=== PATIENT | female | born 1950 | race Caucasian/White ===

== ENCOUNTER 2016-11-25 16:06 | Emergency (ER) | payer MEDICAID ==
[~2016-11-25] VITALS: Ht 157.5 cm; Wt 80.7 kg
[~2016-11-25 16:06] MED LIST: ACID REDUCER150 MG ORAL; ALBUTEROL SULF8.5 GM INH; AMITRIPTYLINE100 MG ORAL; AMOXICILLIN500 MG ORAL; AZITHROMYCIN250 MG ORAL; BENTYL10 MG ORAL; CARBAMAZEPINE200 MG ORAL; CHLORTHALIDONE25 MG ORAL; DICYCLOMINE HCL10 MG PO; FLOVENT2 PUFF1 INH; GABAPENTIN400 MG ORAL; GUAIFENESIN-CO118 M1 ORAL; LORATADINE10 M1 PO; NORCO 5-325 TA1 EAC1 ORAL; NORCO 5-325 TA1 EACH ORAL; NORVASC5 MG ORAL; OXYCODONE-ACET1 EAC3 ORAL; PRILOSEC10 MG ORAL; PROTONIX40 MG ORAL; PSEUDOEPHEDRINE60 MG PO; XANAX0.25 MG ORAL; ZOFRAN ODT4 MG ORAL; ZOLOFT25 MG ORAL
--- NOTE | 2016-11-25 16:16 | Emergency Room Report ---
History of Present Illness General Chief Complaint: To Be Triaged Source: Patient, Medical Record Present Illness HPI 66YOF walk-in with progressive right lower back pain/buttock radiating to right knee. Chronic but worsening however unable to qualify how it is worse. Denies lower extremity weakness, urinary incontinence, fever/chills, dysuria. States known neuropathy, trigeminal neuropathy. Not diabetic. hasnt seen PMD in a year. Takes percocet PRN pain. Patient has been here before for similar complaints. Per EMR, a h/o nervousness , hyponatremia, and hypomagnesia, , generally weak with confusion, swollen face , dizziness without TURCIOS or loc, blurry vision and change in her speech. Has had labworkup that was negative in the past as well, no electrolyte abnormalities Allergies: Coded Allergies: SULFA (SULFONAMIDE ANTIBIOTICS) (Verified Allergy, Intermediate, Rash, 10/21) abdominal pain DIVALPROEX SODIUM (Verified Allergy, Mild, 10/21/13) UNKNOWN GABAPENTIN (Verified Allergy, Unknown, 11/25/16) CARBAMAZEPINE (Verified Adverse Reaction, Severe, Shortness of Breath, 10/21) swollen lips,dizziness,skin itching. Patient History Past Medical History: other - see hpi Past Surgical History: none Pertinent Family History: none Social History: Denies: smoking, alcohol use, drug use Now: No Immunizations: UTD Reviewed Nursing Documentation: PMH: Agreed, PSxH: Agreed Nursing Documentation-PMH Hx Cardiac Problems: Yes - edema Hx Hypertension: Yes Hx Cancer: Yes - LEFT BREAST Hx Gastrointestinal Problems: Yes - acid reflux Hx Neurological Problems: Yes - trigeminal neuralgia Hx Weakness: Yes Hx Fatigue: Yes Review of Systems All Other Systems: negative except mentioned in HPI Physical Exam Sp02 EP Interpretation: reviewed, normal General Appearance: normal inspection, well appearing, no apparent distress, alert, GCS 15, non-toxic, other - Well appearing, smiling, interactive. Ambulated in ED without weakness Head: normocephalic, atraumatic Eyes: bilateral eye PERRL, bilateral eye EOMI ENT: normal ENT inspection, hearing grossly normal, normal voice Neck: normal inspection, full range of motion, supple, no bony tend Respiratory: normal inspection, lungs clear, normal breath sounds, no respiratory distress, no retraction, no wheezing Cardiovascular #1: regular rate, rhythm, no edema Gastrointestinal: normal inspection, normal bowel sounds, non tender, soft, no guarding, no hernia Genitourinary: no CVA tenderness Musculoskeletal: normal inspection, back normal, normal range of motion, Price' s Sign negative Neurologic: normal inspection, alert, oriented x3, responsive, iron setter III-XII nml as tested, motor strength/tone normal, speech normal, other - 5/5 bilateral lower extremity weakness. SL raise test on right causes radiating pain only to right knee Psychiatric: normal inspection, judgement/insight normal, mood/affect normal Skin: normal inspection, normal color, no rash Medical Decision Making Diagnostic Impression: Primary Impression: Peripheral neuropathy Qualified Codes: G62.89 - Other specified polyneuropathies Additional Impression: Sciatica of right side ER Course Sciatica of right side Chronic No acute focal neuro deficit, low suspicion for cord compression. Low suspicion for pyelo/UTI given afebrile, no urinary complaints. +straight leg raise test on right Has had Rx for Gabapentin from here previously, now stating she is allergic to that as well Will try trial of lidoderm patch, robaxin PMD followup DC home Status: improved Disposition: HOME, SELF-CARE Scripts Lidocaine (Lidoderm) 1 Each Adh..patch 1 PATCH TOPIC DAILY for back pain, sciatica for 14 Days, #14 PATCH 0 Refills Patch(es) may remain in place for up to 12 hours in any 24-hour period. Prov: REBECA MOREL M.D. 11/25/16 Methocarbamol* (ROBAXIN-750*) 750 Mg Tablet 750 MG PO TID for 7 Days, #30 TAB 0 Refills Prov: REBECA MOREL M.D. 11/25/16 REBECA MOREL M.D. Nov 25, 2016 16:16
[2016-11-25] MEDS ORDERED: Methocarbamol 750mg tab ORAL ONE (16:30)
[2016-11-25] MEDS ORDERED: LIDODERM700 M1 TOPIC (16:31)
[2016-11-25] MEDS ORDERED: ROBAXIN-750750 MG PO (16:31)
[2016-11-25] MEDS ORDERED: GABAPENTIN800 MG ORAL (16:31)
[2016-11-25 16:33] VITALS: BP 169/84
[2016-11-25 16:54] VITALS: BP 169/86
== END 2016-11-25 16:56 | disposition home or self-care (01) ==
LOC: EMR 16:35
DX: G62.89 Other specified polyneuropathies (principal); M54.31 Sciatica, right side; I10 Essential (primary) hypertension; K21.9 Gastro-esophageal reflux disease without esophagitis; Z85.3 Personal history of malignant neoplasm of breast; Z88.2 Allergy status to sulfonamides; Z88.8 Allergy status to other drugs, medicaments and biological substances
CPT/HCPCS: 99284

== ENCOUNTER 2017-08-17 22:57 | Emergency (ER) | payer MEDICAID ==
[~2017-08-17] VITALS: Ht 157.5 cm; Wt 79.8 kg
[~2017-08-17 22:57] MED LIST changes: +GABAPENTIN800 MG ORAL; +LIDODERM700 M1 TOPIC; +ROBAXIN-750750 MG PO
[2017-08-17 23:23] VITALS: BP 139/75
[2017-08-17] MEDS ORDERED: Albuterol ud Inhalation HHN ONE (23:45)
[2017-08-18] MEDS ORDERED: ALBUTEROL SULF8.5 GM INH
[2017-08-18] MEDS ORDERED: PREDNISONE20 MG ORAL
--- NOTE | 2017-08-18 00:01 | Emergency Room Report ---
History of Present Illness General Chief Complaint: Chest Pain Source: Patient, Medical Record Present Illness HPI This a 67-year-old female with history of previous bronchitis and also high blood pressure. She presents with chief complaint of chest pressure and shortness of breath is been ongoing for about a week. She's been coughing but nonproductive in nature. Seems getting worse. No fever chills. No chest pain. No nausea no vomiting. Coughing is occasionally with sputum but mostly nonproductive. worse With exertion. Better with rest. Worse with lying flat. Allergies: Coded Allergies: SULFA (SULFONAMIDE ANTIBIOTICS) (Verified Allergy, Intermediate, Rash, 10/21) abdominal pain DIVALPROEX SODIUM (Verified Allergy, Mild, 10/21/13) UNKNOWN GABAPENTIN (Verified Allergy, Unknown, 11/25/16) CARBAMAZEPINE (Verified Adverse Reaction, Severe, Shortness of Breath, 10/21) swollen lips,dizziness,skin itching. Patient History Past Medical History: see triage record, old chart reviewed, HTN Past Surgical History: other Pertinent Family History: none Social History: Denies: smoking Now: No Immunizations: UTD Reviewed Nursing Documentation: PMH: Agreed; PSxH: Agreed Nursing Documentation-PMH Past Medical History: No History, Except For Hx Cardiac Problems: Yes - Hyponatremia Hx Hypertension: Yes Hx Cancer: Yes - Left Breat Hx Gastrointestinal Problems: Yes - GERD, Gastric Ulcer Hx Neurological Problems: Yes - Trigeminal Neuralgia, Peripheral Neuropathy Hx Weakness: Yes Hx Fatigue: Yes Review of Systems Eye: Denies: eye pain, blurred vision ENT: Denies: ear pain, nose congestion, throat swelling Respiratory: Reports: cough, shortness of breath Cardiovascular: Reports: chest pain; Denies: palpitations Gastrointestinal: Denies: abdominal pain, diarrhea, nausea, vomiting Musculoskeletal: Denies: back pain, joint pain Skin: Denies: rash Neurological: Denies: headache, numbness Endocrine: Denies: increased thirst, increased urine Hematologic/Lymphatic: Denies: easy bruising All Other Systems: negative except mentioned in HPI Physical Exam Vital Signs Date Time Temp Pulse Resp B/P (MAP) Pulse Ox O2 Delivery O2 Flow Rate FiO2 08/17/17 23:13 98.9 98 17 139/75 98 Room Air 99.0 08/17/17 23:51 21 vitals normal Sp02 EP Interpretation: reviewed, normal General Appearance: well appearing, no apparent distress, alert Head: normocephalic, atraumatic Eyes: bilateral eye PERRL, bilateral eye EOMI ENT: hearing grossly normal, normal pharynx Neck: full range of motion, supple, no meningismus Respiratory: chest non-tender, lungs clear, normal breath sounds Cardiovascular #1: regular rate, rhythm, no murmur Gastrointestinal: normal bowel sounds, non tender, no mass, no organomegaly, no bruit, non-distended Musculoskeletal: back normal, gait/station normal, normal range of motion Psychiatric: mood/affect normal Skin: warm/dry Medical Decision Making Diagnostic Impression: Primary Impression: Bronchitis, acute Qualified Codes: J20.9 - Acute bronchitis, unspecified ER Course Patient with a bronchitis most likely viral in nature. No evidence of ACS, PE, dissection to name a few. Better with nebulizer treatment. We'll discharge home. EKG Diagnostic Results Rate: normal Rhythm: NSR ST Segments: no acute changes Rhythm Strip Diag. Results Rhythm Strip Time: 23:59 EP Interpretation: yes Rate: 85 Rhythm: NSR, no PVC's, no ectopy Last Vital Signs Date Time Temp Pulse Resp B/P (MAP) Pulse Ox O2 Delivery O2 Flow Rate FiO2 08/17/17 23:51 21 08/17/17 23:50 98 17 98 Room Air 08/17/17 23:23 99.0 139/75 99.0 Status: improved Disposition: HOME, SELF-CARE Condition: Stable Scripts Prednisone* (PREDNISONE*) 20 Mg Tablet 60 MG ORAL DAILY, #15 TAB Prov: SARAH RUIZ M.D. 08/18/17 Albuterol Sulfate* (ALBUTEROL SULFATE MDI*) 8.5 Gm Hfa.aer.ad 2 PUFF INH Q4H PRN for cough/wheezing, #1 EA 0 Refills Prov: SARAH RUIZ M.D. 08/18/17 Referrals: NON PHYSICIAN (PCP) Additional Instructions: Follow-up your doctor in 7 days. Return if worse. SARAH RUIZ M.D. Aug 18, 2017 00:01
[2017-08-18 00:07] VITALS: BP 139/75
--- NOTE | 2017-08-18 16:40 | Cardiology Report ---
APPROVED REPORT EKG Measurement Heart [id number] Normal sinus rhythm Normal ECG
== END 2017-08-18 00:07 | disposition home or self-care (01) ==
LOC: EMR 23:48
DX: J20.9 Acute bronchitis, unspecified (principal); I10 Essential (primary) hypertension; Z85.3 Personal history of malignant neoplasm of breast; K21.9 Gastro-esophageal reflux disease without esophagitis; G50.0 Trigeminal neuralgia; Z87.11 Personal history of peptic ulcer disease; Z88.2 Allergy status to sulfonamides; Z88.8 Allergy status to other drugs, medicaments and biological substances
CPT/HCPCS: 93005; 94640; 99284; J7512

== ENCOUNTER 2017-08-25 11:20 | Emergency (ER) | payer MEDICAID ==
[~2017-08-25] VITALS: Ht 157.5 cm; Wt 81.6 kg
[~2017-08-25 11:20] MED LIST changes: +PREDNISONE20 MG ORAL
[2017-08-25 12:09] VITALS: BP 134/74
[2017-08-25] MEDS ORDERED: Albuterol/Ipratropium 3ml neb HHN ONE (12:30)
[2017-08-25] MEDS ORDERED: ZITHROMAX250 MG ORAL (13:26)
[2017-08-25] MEDS ORDERED: ADULT WAL-100 MG/5 M ORAL (13:26)
[2017-08-25 13:40] VITALS: BP 121/76
--- NOTE | 2017-08-25 17:35 | Emergency Room Report ---
History of Present Illness General Chief Complaint: Dyspnea/Respdistress Source: Patient Present Illness HPI Patient is a 67-year-old female who presented after increased cough and congestion. Patient had recently been noted to have increased low-grade temperature. She reports having prior history of asthma. She had been taking breathing treatments some improvement. Patient prior history of chronic pain. She denies any fever. She denies any severe shortness of breath. She denies any leg pain or swelling. Allergies: Coded Allergies: SULFA (SULFONAMIDE ANTIBIOTICS) (Verified Allergy, Intermediate, Rash, 10/21) abdominal pain DIVALPROEX SODIUM (Verified Allergy, Mild, 10/21/13) UNKNOWN GABAPENTIN (Verified Allergy, Unknown, 11/25/16) CARBAMAZEPINE (Verified Adverse Reaction, Severe, Shortness of Breath, 10/21) swollen lips,dizziness,skin itching. Patient History Past Medical History: see triage record Last Menstrual Period: na Reviewed Nursing Documentation: PMH: Agreed; PSxH: Agreed Nursing Documentation-PMH Past Medical History: No History, Except For Hx Cardiac Problems: No - Hyponatremia Hx Hypertension: Yes Hx Cancer: Yes - Left Breat Hx Gastrointestinal Problems: Yes - GERD, Gastric Ulcer Hx Neurological Problems: Yes - Trigeminal Neuralgia, Peripheral Neuropathy Hx Weakness: Yes Hx Fatigue: Yes Review of Systems All Other Systems: negative except mentioned in HPI Physical Exam Vital Signs Date Time Temp Pulse Resp B/P (MAP) Pulse Ox O2 Delivery O2 Flow Rate FiO2 08/25/17 11:50 98.1 82 20 152/87 97 Room Air 98.1 Sp02 EP Interpretation: reviewed, normal General Appearance: normal inspection, well appearing, no apparent distress, alert, GCS 15, obese, Chronically Ill Head: atraumatic ENT: normal ENT inspection, hearing grossly normal, normal voice Neck: normal inspection, full range of motion, supple, no bony tend Respiratory: normal inspection, normal breath sounds, no respiratory distress, no retraction, wheezing Cardiovascular #1: regular rate, rhythm, no edema Gastrointestinal: normal inspection, normal bowel sounds, non tender, soft, no guarding, no hernia Genitourinary: no CVA tenderness Musculoskeletal: normal inspection, back normal, normal range of motion Neurologic: normal inspection, alert, oriented x3, responsive, prepress proofer III-XII nml as tested, speech normal Psychiatric: normal inspection, judgement/insight normal, mood/affect normal Skin: normal inspection, normal color, no rash Medical Decision Making Diagnostic Impression: Primary Impression: Bronchitis ER Course patient presented for cough.Differential diagnosis included but was not limited to bronchitis, pneumonia, pulmonary embolism, pericarditis, asthma, foreign body.chest x-ray one view interpreted by me showed right lower lobe infiltrate. The patient was given breathing treatment with improvement. The patient appears to have some early pneumonia. She was given prescription for azithromycin. The patient is advised to follow up with primary care doctor in 1-2 days. Patient is advised to return if any worsening condition or if any changes in status that are concerning. This report is dictated with [employer] draw press operator software which may occasionally lead to discrepancies related to use of this software. Last Vital Signs Date Time Temp Pulse Resp B/P (MAP) Pulse Ox O2 Delivery O2 Flow Rate FiO2 08/25/17 13:40 98.1 74 12 121/76 99 Room Air 98.1 Status: improved Disposition: HOME, SELF-CARE Condition: Stable Scripts Guaifenesin* (ADULT WAL-TUSSIN*) 100 Mg/5 Ml Liquid 10 ML ORAL Q4H, #120 ML Prov: Scotty Resendez MD 08/25/17 Azithromycin* (ZITHROMAX*) 250 Mg Tablet 250 MG ORAL DAILY, #6 TAB 0 Refills Take two tables once daily for 1 day, then one tablet once daily for 4 days. Prov: Scotty Resendez MD 08/25/17 Patient Instructions: Community-Acquired Pneumonia, Adult Scotty Resendez MD Aug 25, 2017 17:35
--- NOTE | 2017-08-26 11:12 | Diagnostic Imaging Report ---
Indication: Shortness of breath Technique: One view of the chest Comparison: 01/18/2016 Findings: Upper limits normal heart size. Tortuous calcified aorta. The patient's chin obscures the upper mediastinum. Lungs and pleural spaces are clear. No significant change. Impression: No definite acute process
== END 2017-08-25 14:14 | disposition home or self-care (01) ==
LOC: EMR 13:12
DX: J40 Bronchitis, not specified as acute or chronic (principal); I10 Essential (primary) hypertension; Z85.3 Personal history of malignant neoplasm of breast; K21.9 Gastro-esophageal reflux disease without esophagitis; G62.9 Polyneuropathy, unspecified
CPT/HCPCS: 71045; 94640; 94664; 99284; J7620

== ENCOUNTER 2017-09-08 10:51 | Inpatient (IN) | payer MEDICAID ==
[~2017-09-08] VITALS: Ht 157.5 cm; Wt 85.7 kg
[~2017-09-08 10:51] MED LIST changes: +ADULT WAL-100 MG/5 M ORAL; +ZITHROMAX250 MG ORAL
[2017-09-08] MEDS ORDERED: Promethazine/Codeine 5ml UD ORAL ONE (11:15)
[2017-09-08] MEDS ORDERED: Albuterol ud Inhalation HHN ONE (11:15)
--- NOTE | 2017-09-08 11:16 | Emergency Room Report ---
History of Present Illness General Chief Complaint: Eye Problems Source: Patient Present Illness HPI Patient presents with complaints of ongoing shortness of breath Continued cough Reports that she was here recently with similar complaint Was put on azithromycin She was doing somewhat better Yesterday she was cleaning with bleach She had an incident where there was a splash into the left eye Patient cleaned the area and feels better however had some minimal discomfort Denies any visual changes However now feels that her cough is worsened if she continues to feel short of breath denies any fevers denies any neck pain or photophobia Allergies: Coded Allergies: SULFA (SULFONAMIDE ANTIBIOTICS) (Verified Allergy, Intermediate, Rash, 10/21) abdominal pain DIVALPROEX SODIUM (Verified Allergy, Mild, 10/21/13) UNKNOWN GABAPENTIN (Verified Allergy, Unknown, 11/25/16) CARBAMAZEPINE (Verified Adverse Reaction, Severe, Shortness of Breath, 10/21) swollen lips,dizziness,skin itching. Patient History Past Medical History: see triage record Pertinent Family History: none Now: No Reviewed Nursing Documentation: PMH: Agreed; PSxH: Agreed Nursing Documentation-PMH Hx Cardiac Problems: No - Hyponatremia Hx Hypertension: Yes Hx Cancer: Yes - Left Breat Hx Gastrointestinal Problems: Yes - GERD, Gastric Ulcer Hx Neurological Problems: Yes - Trigeminal Neuralgia, Peripheral Neuropathy Hx Weakness: Yes Hx Fatigue: Yes Review of Systems All Other Systems: negative except mentioned in HPI Physical Exam Vital Signs Date Time Temp Pulse Resp B/P (MAP) Pulse Ox O2 Delivery O2 Flow Rate FiO2 09/08/17 10:57 98.0 106 18 174/81 96 Room Air 98.1 Sp02 EP Interpretation: reviewed, normal General Appearance: well appearing, no apparent distress Head: normocephalic, atraumatic Eyes: bilateral eye PERRL, bilateral eye EOMI ENT: hearing grossly normal, normal pharynx, TMs + canals normal, uvula midline Neck: full range of motion, supple, no meningismus, no bony tend Respiratory: lungs clear, normal breath sounds, no rhonchi, no respiratory distress, no retraction, no accessory muscle use Cardiovascular #1: normal peripheral pulses, regular rate, rhythm, no edema, no gallop, no JVD, no murmur Gastrointestinal: normal bowel sounds, non tender, soft, no mass, no organomegaly, non-distended, no guarding, no hernia, no pulsatile mass, no rebound Genitourinary: no CVA tenderness Musculoskeletal: normal inspection Neurologic: oriented x3, responsive, water resources project manager III-XII nml as tested, motor strength/ tone normal, sensory intact Psychiatric: mood/affect normal Skin: normal color, no rash, warm/dry, palpation normal Lymphatic: normal inspection, no adenopathy Medical Decision Making Diagnostic Impression: Primary Impression: Cough Additional Impression: Chemical conjunctivitis ER Course Patient is a fairly complex patient with multiple differential to consideration including but not limited to cardiac cardiopulmonary and vascular emergencies Patient had baseline blood work initiated along with imaging study Chest x-ray was normal patient resting comfortably in the room Reports that the albuterol dose did help her symptoms Given the patient's repeat presentation admission was offered to the patient to stay in the hospital for further eval However she reports that she feels better and will attempt outpatient follow-up And will return with any worsening symptoms Labs Test 09/08/17 11:40 White Blood Count 8.8 K/UL (4.8-10.8) Red Blood Count 4.51 M/UL (4.20-5.40) Hemoglobin 12.9 G/DL (12.0-16.0) Hematocrit 39.5 % (37.0-47.0) Mean Corpuscular Volume 88 FL (80-99) Mean Corpuscular Hemoglobin 28.7 PG (27.0-31.0) Mean Corpuscular Hemoglobin Concent 32.7 G/DL (32.0-36.0) Red Cell Distribution Width 12.0 % (11.6-14.8) Platelet Count 306 K/UL (150-450) Mean Platelet Volume 6.7 FL (6.5-10.1) Neutrophils (%) (Auto) 66.2 % (45.0-75.0) Lymphocytes (%) (Auto) 25.4 % (20.0-45.0) Monocytes (%) (Auto) 6.2 % (1.0-10.0) Eosinophils (%) (Auto) 1.0 % (0.0-3.0) Basophils (%) (Auto) 1.2 % (0.0-2.0) Sodium Level 134 MMOL/L (136-145) Potassium Level 3.3 MMOL/L (3.5-5.1) Chloride Level 99 MMOL/L (98-107) Carbon Dioxide Level 26 MMOL/L (21-32) Anion Gap 9 mmol/L (5-15) Blood Urea Nitrogen 14 mg/dL (7-18) Creatinine 0.7 MG/DL (0.55-1.30) Estimat Glomerular Filtration Rate > 60 mL/min (>60) Glucose Level 108 MG/DL (74-106) Calcium Level 9.1 MG/DL (8.5-10.1) Total Bilirubin 0.5 MG/DL (0.2-1.0) Aspartate Amino Transf (AST/SGOT) 17 U/L (15-37) Alanine Aminotransferase (ALT/SGPT) 29 U/L (12-78) Alkaline Phosphatase 70 U/L (46-116) Total Creatine Kinase 138 U/L (26-308) Creatine Kinase MB 3.0 NG/ML (0.0-3.6) Creatine Kinase MB Relative Index 2.1 Troponin I 0.000 ng/mL (0.000-0.056) Pro-B-Type Natriuretic Peptide 50 pg/mL (0-125) Total Protein 7.4 G/DL (6.4-8.2) Albumin 3.8 G/DL (3.4-5.0) Globulin 3.6 g/dL Albumin/Globulin Ratio 1.1 (1.0-2.7) EKG Diagnostic Results Rate: normal Rhythm: NSR ST Segments: no acute changes Rhythm Strip Diag. Results EP Interpretation: yes Rate: 68 Rhythm: NSR, no PVC's, no ectopy Chest X-Ray Diagnostic Results Chest X-Ray Diagnostic Results : Chest X-Ray Ordered: Yes # of Views/Limited/Complete: 1 View Indication: Chest Pain EP Interpretation: Yes Interpretation: no consolidation, no effusion, no pneumothorax Impression: No acute disease Electronically Signed by: Patti Estrella DO Last Vital Signs Date Time Temp Pulse Resp B/P (MAP) Pulse Ox O2 Delivery O2 Flow Rate FiO2 09/08/17 10:57 98.0 106 18 174/81 96 Room Air 98.1 Status: improved Disposition: HOME, SELF-CARE Condition: Improved Scripts Dextromethorphan Hb/Doxylamine (ROBITUSSIN NIGHTTIME COUGH DM) 237 Ml Liquid 10 ML PO QHS for 5 Days, ML Prov: Patti Estrella DO 09/08/17 Albuterol Sulfate* (ALBUTEROL SULFATE MDI*) 8.5 Gm Hfa.aer.ad 2 PUFF INH Q6H, #1 EA 0 Refills Prov: Patti Estrella DO 09/08/17 Additional Instructions: Patient is provided with the discharge instructions notified to follow up with primary doctor in the next 2-3 days otherwise return to the er with any worsening symptoms. Please note that this report is being documented using [employer] technology. This can lead to erroneous entry secondary to incorrect interpretation by the dictating instrument. Patti Estrella DO Sep 08, 2017 11:16
--- NOTE | 2017-09-08 11:46 | Diagnostic Imaging Report ---
EXAM: XR Chest, 1 View CLINICAL HISTORY: SOB TECHNIQUE: Frontal view of the chest. COMPARISON: Chest x-ray dated 08/25/17 FINDINGS: Lungs: Unremarkable. The lungs appear clear. No confluent pulmonary opacities. Pleural space: Unremarkable. No pneumothorax. Heart: Unremarkable. No cardiomegaly. Mediastinum: Unremarkable. Bones/joints: Unremarkable. Vasculature: Atherosclerotic calcifications are noted within the aortic arch. IMPRESSION: No acute findings.
[2017-09-08 11:59] LABS: BASOPHILS % (AUTO) 1.2 % (0.0-2.0); HEMATOCRIT 39.5 % (37.0-47.0); HEMOGLOBIN 12.9 G/DL (12.0-16.0); LYMPHOCYTES % (AUTO) 25.4 % (20.0-45.0); MEAN CORPUSCULAR VOLUME 88 FL (80-99); MONOCYTES % (AUTO) 6.2 % (1.0-10.0); NEUTROPHILS % (AUTO) 66.2 % (45.0-75.0); PLATELET COUNT 306 K/UL (150-450); RED BLOOD COUNT 4.51 M/UL (4.20-5.40); WHITE BLOOD COUNT 8.8 K/UL (4.8-10.8)
[2017-09-08 12:05] LABS: ANION GAP 9 mmol/L (5-15); BLOOD UREA NITROGEN 14 mg/dL (7-18); CALCIUM 9.1 MG/DL (8.5-10.1); CARBON DIOXIDE 26 MMOL/L (21-32); CHLORIDE 99 MMOL/L (98-107); CREATININE 0.7 MG/DL (0.55-1.30); POTASSIUM 3.3 MMOL/L (3.5-5.1); SODIUM 134 MMOL/L (136-145)
[2017-09-08 12:18] LABS: ALANINE AMINOTRANSFERASE 29 U/L (12-78); ALBUMIN 3.8 G/DL (3.4-5.0); ALBUMIN/GLOBULIN RATIO 1.1 (1.0-2.7); ALKALINE PHOSPHATASE 70 U/L (46-116); ASPARTATE AMINO TRANSFERASE 17 U/L (15-37); BILIRUBIN,TOTAL 0.5 MG/DL (0.2-1.0); CREATINE KINASE 138 U/L (26-308)
[2017-09-08 12:19] VITALS: BP 160/75
[2017-09-08] MEDS ORDERED: ROBITUSSIN NIG237 ML PO (12:45)
[2017-09-08] MEDS ORDERED: ALBUTEROL SULF8.5 GM INH (12:45)
[2017-09-08] MEDS ORDERED: Solu-MEDROL 125mg Inj IVP ONE (13:00)
[2017-09-08 14:59] VITALS: BP 160/73
[2017-09-08 16:00] VITALS: BP 161/72
[2017-09-08] MEDS: ALPRAZolam 0.5mg tab ORAL PRN (18:31)
[2017-09-08] MEDS: Albuterol/Ipratropium 3ml neb HHN SCH ×2 (18:54→22:57)
[2017-09-08 20:00] VITALS: BP 156/85
[2017-09-08] MEDS ORDERED: Amitriptyline 100mg tab ORAL SCH (21:00)
[2017-09-08] MEDS: Solu-MEDROL 40mg Inj IVP SCH (21:14)
[2017-09-08] MEDS: Heparin 5000 units/ml inj SUBQ SCH (22:21)
[2017-09-09] VITALS (7 sets, daily range): BP systolic 129–180; BP diastolic 69–97
--- NOTE | 2017-09-09 00:45 | History and Physical Report ---
DATE OF ADMISSION: 09/08/2017 REASON FOR ADMISSION: Shortness of breath. HISTORY OF PRESENT ILLNESS: This is a 67-year-old female with no prior history of asthma who developed cough, congestion, and what she described as a bronchitis about a month ago. She was treated as an outpatient with antimicrobials namely azithromycin and inhaled albuterol. She improved slightly, but then had a relapse and returned to the emergency room where again she was told to have a clear chest x-ray and advised to continue albuterol with prednisone as well. Yesterday, the patient was cleaning in her house, had some paint that she was using splashed into her eye, but she washed it out without any complications. She was using other cleaning products such as bleach and notes that the scent worsened what symptoms she already was having namely her congestion, wheezing, and cough. Today, her symptoms were so severe she could not function at home and came to the emergency room. PAST MEDICAL HISTORY: Hypertension, history of breast cancer with left mastectomy, gastroesophageal reflux disease, trigeminal neuralgia, peripheral neuropathy, history of gastric ulcer, and history of hyponatremia. ALLERGIES: Include sulfa, divalproex, gabapentin, and carbamazepine. SOCIAL HISTORY: Nonsmoker. No alcohol or substance abuse. FAMILY HISTORY: Noncontributory. REVIEW OF SYSTEMS: A 10-point review of systems performed. All pertinent positive as outlined above. PHYSICAL EXAMINATION: GENERAL: Mildly obese, well developed, no acute distress. VITAL SIGNS: Afebrile, blood pressure 174/81, pulse 106, respiratory rate 18, and oxygen saturation on room air 96% in the emergency room. Following admission, blood pressure 160/73, pulse 88, respirations 20, and afebrile. HEENT: Conjunctivae are pink. Sclerae are anicteric. Oropharynx clear. No thrush. Mucous membranes moist. NECK: Supple. No adenopathy. No accessory muscle use. No thyromegaly. LUNGS: Coarse breath sounds. Scattered expiratory wheezes and rhonchi. BREASTS: Without discrete mass. CARDIAC: Regular rhythm and rate. Normal S1 and S2 with a fourth heart sound. No murmur. ABDOMEN: Obese, soft, and nontender with no guarding or rebound. EXTREMITIES: No clubbing, cyanosis, and there is trace edema. LABORATORY AND DIAGNOSTIC DATA: White count 8.8, hemoglobin 12.9. Sodium 134, potassium 3.3, bicarbonate 26, BUN 14, and creatinine 0.7. Troponin negative. Albumin 3.8. Glucose 108. Chest x-ray with no acute findings on a single view. EKG, sinus rhythm with no abnormality. IMPRESSION: 1. Acute bronchospasm. 2. Asthma exacerbation. 3. No signs of acute pulmonary infection, possibly viral syndrome, but most likely chemical related. 4. Irritation of bronchioles. 5. Hypertension. 6. Thiazide-associated hyponatremia and hypokalemia. 7. Mild obesity. 8. History of breast cancer. PLAN: 1. Inhaled bronchodilators. 2. Intravenous steroids. 3. Antitussives. 4. DVT prophylaxis. 5. Titrate antihypertensives. 6. Avoid thiazide. 7. Replace potassium. 8. Check magnesium. 9. Check thyroid panel. 10. Pulmonary consultation. Jude Layne M.D. DR: Aldo JOB#: [id number] CC:
[2017-09-09] MEDS: Albuterol/Ipratropium 3ml neb HHN SCH ×6 (03:00→23:00)
[2017-09-09] MEDS: Solu-MEDROL 40mg Inj IVP SCH ×3 (06:12→21:46)
[2017-09-09 07:22] LABS: HEMATOCRIT 37.5 % (37.0-47.0); HEMOGLOBIN 12.9 G/DL (12.0-16.0); MEAN CORPUSCULAR VOLUME 87 FL (80-99); PLATELET COUNT 316 K/UL (150-450); RED CELL DISTRIBUTION WIDTH 12.1 % (11.6-14.8); WHITE BLOOD COUNT 13.5 K/UL (4.8-10.8)
[2017-09-09 07:47] LABS: ALANINE AMINOTRANSFERASE 28 U/L (12-78); ALBUMIN 3.3 G/DL (3.4-5.0); ALBUMIN/GLOBULIN RATIO 0.9 (1.0-2.7); ALKALINE PHOSPHATASE 59 U/L (46-116); ANION GAP 10 mmol/L (5-15); ASPARTATE AMINO TRANSFERASE 19 U/L (15-37); BILIRUBIN,TOTAL 0.5 MG/DL (0.2-1.0); BLOOD UREA NITROGEN 16 mg/dL (7-18); CALCIUM 9.4 MG/DL (8.5-10.1); CARBON DIOXIDE 26 MMOL/L (21-32); CHLORIDE 101 MMOL/L (98-107); CREATININE 0.9 MG/DL (0.55-1.30); POTASSIUM 3.3 MMOL/L (3.5-5.1); SODIUM 137 MMOL/L (136-145)
[2017-09-09] MEDS: Heparin 5000 units/ml inj SUBQ SCH ×2 (08:36→21:11)
[2017-09-09] MEDS: Promethazine/Codeine 5ml UD ORAL PRN ×2 (08:37→21:08)
--- NOTE | 2017-09-09 18:27 | Diagnostic Imaging Report ---
Indications: Congestion, wheezing, and cough Technique: Spiral images obtained through the maxillofacial sinuses. No IV contrast utilized. Multiplanar reconstructions were generated.Total dose length product 574 mGycm. CTDIvol(s) 28 mGy. Dose reduction achieved using automated exposure control Comparison: none Findings: The sinuses are clear. The maxillary ostia are patent. The nasal fossa is clear. No significant opacification or air-fluid levels demonstrated. The optic globes and retroseptal orbits are unremarkable. The visualized intracranial structures are unremarkable. The salivary glands are unremarkable. No cervical mass or adenopathy. The upper aerodigestive tract is unremarkable. Impression: Negative The CT scanner at [facility] is accredited by the [employer] and the scans are performed using protocols designed to limit radiation exposure to as low as reasonably achievable to attain images of sufficient resolution adequate for diagnostic evaluation.
--- NOTE | 2017-09-09 18:33 | Diagnostic Imaging Report ---
Clinical Indication: Shortness of breath Technique: Spiral acquisitions obtained through the chest. No IV contrast utilized, . Multiplanar reconstructions generated. Total dose length product 646.71 mGycm. CTDIvol(s) 19 mGy. Dose reduction achieved using automated exposure control Comparison: none Findings:. Atelectatic changes or scarring is seen at both lung bases, minimal. There is a 5 mm noncalcified nodule in the posterior left lower lobe, image 28 series 7. No other nodules. No infiltrates, effusions, or congestion. There is minimal anterior wall pericardial thickening. Heart size is normal. No mediastinal or hilar mass or adenopathy. Tiny calcifications are seen in the lower pole of the visualized portions of the thyroid. This is on the left. No axillary or chest wall mass or adenopathy. Included upper abdominal anatomy is unremarkable Impression: No acute abnormality. 5 mm noncalcified left lower lobe nodule. If there is significant smoking history, short interval follow-up CT in 6-12 months is recommended. There is no significant smoking history, no further follow-up is necessary Bilateral basilar atelectasis or scar Minimal anterior wall pericardial thickening Thyroid calcifications. No further follow-up necessary The CT scanner at [facility] is accredited by the [employer] and the scans are performed using protocols designed to limit radiation exposure to as low as reasonably achievable to attain images of sufficient resolution adequate for diagnostic evaluation.
--- NOTE | 2017-09-09 19:30 | Progress Note ---
DATE: 09/09/2017 CARDIOLOGY PROGRESS NOTE SUBJECTIVE: This patient is without chest pain. Her shortness of breath is persisting, but somewhat slightly better with regard to congestion. She still feels pressure in her face on the right side predominantly, now the cough is harsh. She has a severe headache as well. OBJECTIVE: VITAL SIGNS: Blood pressure 136/78, pulse 109, respiratory rate 18 and afebrile. LUNGS: Coarse breath sounds with rhonchi. Right maxillary facial tenderness. No wheezing. CARDIAC: Regular rhythm and rate. Normal S1 and S2 with a fourth heart sound. ABDOMEN: Soft. EXTREMITIES: Without edema. LABORATORY AND DIAGNOSTIC DATA: White count 13.5 and hemoglobin 12.9. Potassium 3.3, magnesium 1.7, BUN 16 and creatinine 0.9. IMPRESSION: 1. Acute bronchospasm. 2. Chronic obstructive pulmonary disease exacerbation. 3. Hypokalemia. 4. Hypomagnesemia. 5. Possible sinusitis. 6. Secondary sinus tachycardia. PLAN: 1. Continue cardiac monitoring. 2. Continue IV steroids. 3. Continue empiric antibiotics. Check CT scan of the sinuses and chest. 4. Await echocardiogram. 5. Consider venous duplex scan. 6. Inhaled bronchodilators. 7. DVT prophylaxis. Jude Layne M.D. DR: NAYELI JOB#: [id number] CC:
[2017-09-09] MEDS: ALPRAZolam 0.5mg tab ORAL PRN (21:07)
[2017-09-09] MEDS: cefTRIAXone 1 GM in D5W 110 ML IVPB SCH (21:46)
[2017-09-10] VITALS: BP 167/89
[2017-09-10] MEDS: Albuterol/Ipratropium 3ml neb HHN SCH ×6 (02:06→23:00)
[2017-09-10] MEDS: Promethazine/Codeine 5ml UD ORAL PRN ×2 (02:58→20:35)
[2017-09-10 04:00] VITALS: BP_SYST 148; BP_SYST 180; BP_DIAS 78; BP_DIAS 90
[2017-09-10] MEDS: ALPRAZolam 0.5mg tab ORAL PRN ×3 (06:00→22:21)
[2017-09-10] MEDS: Solu-MEDROL 40mg Inj IVP SCH ×2 (06:00→13:20)
[2017-09-10 08:00] VITALS: BP 156/88
[2017-09-10] MEDS: Heparin 5000 units/ml inj SUBQ SCH ×2 (08:09→20:40)
[2017-09-10 12:00] VITALS: BP 163/96
[2017-09-10 16:00] VITALS: BP 152/88
[2017-09-10 20:00] VITALS: BP 158/85
--- NOTE | 2017-09-10 21:45 | Progress Note ---
DATE: 09/10/2017 CARDIOLOGY PROGRESS NOTE SUBJECTIVE: The patient has less congestion and shortness of breath. She had CAT scans of the chest and sinuses yesterday, did reveal 5 mm noncalcified left lower lobe nodule and minimal pericardial thickening. The sinus series was normal. The patient also had a bilateral venous duplex scan of the lower extremities that revealed bilateral patency with no thrombus. Monitored rhythm sinus with no ectopy. OBJECTIVE: VITAL SIGNS: Blood pressure 163/96, pulse 91, respiratory rate 18, afebrile, oxygen saturation on room air is 96%. LUNGS: Coarse breath sounds. No wheezing. CARDIOVASCULAR: Regular rhythm and rate. Normal S1, S2 with a fourth heart sound. ABDOMEN: Soft. EXTREMITIES: No edema. IMPRESSION: Bronchospasm improves. No signs of acute infection. Lung nodule likely benign, but because of prior smoking history, followup is recommended and followup CT scan is recommended in 6 months. PLAN: 1. Taper steroids. 2. Optimize antihypertensives. 3. Anxiolytics. 4. Mobilize discharge planning. 5. Continue empiric antibiotics. Jude Layne M.D. DR: Eun JOB#: [id number] CC:
[2017-09-10] MEDS: cefTRIAXone 1 GM in D5W 110 ML IVPB SCH (22:21)
[2017-09-11] VITALS: BP 144/79
[2017-09-11] MEDS: Albuterol/Ipratropium 3ml neb HHN SCH ×4 (03:00→15:00)
[2017-09-11 04:00] VITALS: BP 140/80
[2017-09-11 07:55] LABS: HEMATOCRIT 35.2 % (37.0-47.0); HEMOGLOBIN 12.2 G/DL (12.0-16.0); MEAN CORPUSCULAR VOLUME 88 FL (80-99); PLATELET COUNT 333 K/UL (150-450); RED BLOOD COUNT 3.99 M/UL (4.20-5.40); RED CELL DISTRIBUTION WIDTH 12.5 % (11.6-14.8); WHITE BLOOD COUNT 18.9 K/UL (4.8-10.8)
[2017-09-11 08:00] VITALS: BP 143/77
[2017-09-11] MEDS: Heparin 5000 units/ml inj SUBQ SCH (08:41)
[2017-09-11 08:58] LABS: ALBUMIN 2.9 G/DL (3.4-5.0); ALBUMIN/GLOBULIN RATIO 0.9 (1.0-2.7); ALKALINE PHOSPHATASE 53 U/L (46-116); ANION GAP 11 mmol/L (5-15); ASPARTATE AMINO TRANSFERASE 24 U/L (15-37); BILIRUBIN,TOTAL 0.2 MG/DL (0.2-1.0); BLOOD UREA NITROGEN 23 mg/dL (7-18); CALCIUM 8.8 MG/DL (8.5-10.1); CARBON DIOXIDE 27 MMOL/L (21-32); CHLORIDE 102 MMOL/L (98-107); CREATININE 0.8 MG/DL (0.55-1.30); POTASSIUM 3.7 MMOL/L (3.5-5.1); SODIUM 140 MMOL/L (136-145)
--- NOTE | 2017-09-11 08:59 | Consultation ---
Consult Note Consult Note Reactive airways dysfunction vs asthma Doing well OK to transition to PO steroids and DC home Inhaled albuterol Denis Palafox MD Sep 11, 2017 08:59
[2017-09-11] MEDS ORDERED: Solu-MEDROL 40mg Inj IVP SCH (09:00)
[2017-09-11 09:25] LABS: ALANINE AMINOTRANSFERASE 52 U/L (12-78)
[2017-09-11 12:00] VITALS: BP 146/90
--- NOTE | 2017-09-11 12:00 | Consultation ---
History of Present Illness General Date patient seen: Sep 11, 2017 Chief Complaint: Eye Problems Present Illness HPI 67-year-old female with hx of anxiety d/o who came with elevated wbc and was told in ER that she has an infection. the pt was anxious and is taking Xanax. the pt stated that she has been increasing the dosage of xanax as it has not been working well. the pt agreed to take an ssri. Allergies: Coded Allergies: SULFA (SULFONAMIDE ANTIBIOTICS) (Verified Allergy, Intermediate, Rash, 10/21) abdominal pain DIVALPROEX SODIUM (Verified Allergy, Mild, 10/21/13) UNKNOWN GABAPENTIN (Verified Allergy, Unknown, 11/25/16) CARBAMAZEPINE (Verified Adverse Reaction, Severe, Shortness of Breath, 10/21) swollen lips,dizziness,skin itching. Medication History Scheduled Albuterol Sulfate* (Albuterol Sulfate Mdi*), 2 PUFF INH Q6H Alprazolam* (Xanax*), 1 MG ORAL THREE TIMES A DAY, (Reported) Amitriptyline HCl (Amitriptyline HCl), 25 MG ORAL BEDTIME, (Reported) Amlodipine Besylate (Norvasc), 5 MG ORAL DAILY, (Reported) Azithromycin* (Zithromax*), 250 MG ORAL DAILY Chlorthalidone* (Chlorthalidone*), 25 MG ORAL DAILY, (Reported) Dextromethorphan Hb/Doxylamine (Robitussin Nighttime Cough Dm), 10 ML PO QHS Dicyclomine Hcl* (Bentyl*), 10 MG ORAL FOUR TIMES A DAY, (Reported) Guaifenesin* (Adult Wal-Tussin*), 10 ML ORAL Q4H Loratadine (Loratadine), 10 MG PO DAILY, (Reported) Prednisone* (Prednisone*), 60 MG ORAL DAILY Ranitidine Hcl* (Acid General Neurologist*), 150 MG ORAL TWICE A DAY Sertraline Hcl* (Zoloft*), 100 MG ORAL DAILY, (Reported) Scheduled PRN Albuterol Sulfate* (Albuterol Sulfate Mdi*), 2 PUFF INH Q4H PRN for cough/ wheezing Hydrocodone Bit/Acetaminophen 5-325* ([place] 5-325*), 1 TAB ORAL Q6H PRN for For Pain, (Reported) Patient History Limited by: medical condition History Provided By: Patient, Medical Record, PMD Healthcare decision maker Resuscitation status Full Code Advanced Directive on File No Past Medical/Surgical History Past Medical/Surgical History: (1) Environmental allergies (2) Hyponatremia (3) Trigeminal neuralgia (4) Medication reaction (5) Trigeminal neuralgia (6) Upper respiratory infection (7) Upper respiratory infection (8) Trigeminal neuralgia (9) Episode of generalized weakness (10) Numbness and tingling in hands (11) Fracture of distal fibula (12) Ankle abrasion (13) Injury of left upper extremity (14) Encounter for generalized patient complaints (15) Peripheral neuropathy (16) Bronchitis (17) Cough (18) Chemical conjunctivitis (19) Dyspnea (20) Reactive airway disease Review of Systems Psychiatric: Reports: prior hx, anxiety, emotional problems Physical Exam General Appearance: no apparent distress, alert Neurologic: oriented x 3, responsive, depressed affect Last 24 Hour Vital Signs Date Time Temp Pulse Resp B/P (MAP) Pulse Ox O2 Delivery O2 Flow Rate FiO2 09/11/17 11:18 Room Air 09/11/17 11:18 Room Air 09/11/17 08:39 85 143/77 09/11/17 08:00 85 09/11/17 08:00 97.8 86 18 143/77 98 Room Air 97.8 09/11/17 07:20 Room Air 09/11/17 07:20 98 Room Air 21 09/11/17 07:20 Room Air 21 09/11/17 07:20 Room Air 09/11/17 04:00 79 09/11/17 04:00 97.5 85 19 140/80 95 Room Air 97.5 09/11/17 03:39 Room Air 21 09/11/17 03:39 Room Air 21 09/11/17 00:00 Room Air 21 09/11/17 00:00 97.8 91 17 144/79 94 Room Air 97.8 09/11/17 00:00 86 09/11/17 00:00 Room Air 21 09/10/17 20:00 97.5 99 18 158/85 93 Room Air 97.5 09/10/17 20:00 Room Air 09/10/17 20:00 97 09/10/17 19:30 95 Room Air 21 09/10/17 19:30 Room Air 21 09/10/17 19:30 94 16 Room Air 21 09/10/17 19:30 Room Air 21 09/10/17 17:36 101 152/88 09/10/17 16:00 108 09/10/17 16:00 98.8 101 18 152/88 95 Room Air 98.8 09/10/17 14:46 Room Air 21 09/10/17 14:46 Room Air 21 09/10/17 12:00 97.2 103 18 163/96 95 Room Air 97.2 09/10/17 12:00 91 Intake and Output 09/10/17 09/11/17 19:00 07:00 Intake Total 480 ml 110 ml Balance 480 ml 110 ml Intake Oral 480 ml IV Total 110 ml # Voids 3 2 # Bowel Movements 1 Laboratory Tests Test 09/11/17 07:20 White Blood Count 18.9 K/UL (4.8-10.8) H Red Blood Count 3.99 M/UL (4.20-5.40) L Hemoglobin 12.2 G/DL (12.0-16.0) Hematocrit 35.2 % (37.0-47.0) L Mean Corpuscular Volume 88 FL (80-99) Mean Corpuscular Hemoglobin 30.5 PG (27.0-31.0) Mean Corpuscular Hemoglobin Concent 34.6 G/DL (32.0-36.0) Red Cell Distribution Width 12.5 % (11.6-14.8) Platelet Count 333 K/UL (150-450) Mean Platelet Volume 6.5 FL (6.5-10.1) Neutrophils (%) (Auto) % (45.0-75.0) Lymphocytes (%) (Auto) % (20.0-45.0) Monocytes (%) (Auto) % (1.0-10.0) Eosinophils (%) (Auto) % (0.0-3.0) Basophils (%) (Auto) % (0.0-2.0) Differential Total Cells Counted 100 Neutrophils % (Manual) 72 % (45-75) Lymphocytes % (Manual) 26 % (20-45) Monocytes % (Manual) 2 % (1-10) Eosinophils % (Manual) 0 % (0-3) Basophils % (Manual) 0 % (0-2) Band Neutrophils 0 % (0-8) Platelet Estimate Adequate Platelet Morphology Normal Red Blood Cell Morphology Normal Sodium Level 140 MMOL/L (136-145) Potassium Level 3.7 MMOL/L (3.5-5.1) Chloride Level 102 MMOL/L (98-107) Carbon Dioxide Level 27 MMOL/L (21-32) Anion Gap 11 mmol/L (5-15) Blood Urea Nitrogen 23 mg/dL (7-18) H Creatinine 0.8 MG/DL (0.55-1.30) Estimat Glomerular Filtration Rate > 60 mL/min (>60) Glucose Level 130 MG/DL (74-106) H Calcium Level 8.8 MG/DL (8.5-10.1) Magnesium Level 1.8 MG/DL (1.8-2.4) Total Bilirubin 0.2 MG/DL (0.2-1.0) Aspartate Amino Transf (AST/SGOT) 24 U/L (15-37) Alanine Aminotransferase (ALT/SGPT) 52 U/L (12-78) Alkaline Phosphatase 53 U/L (46-116) Total Protein 6.3 G/DL (6.4-8.2) L Albumin 2.9 G/DL (3.4-5.0) L Globulin 3.4 g/dL Albumin/Globulin Ratio 0.9 (1.0-2.7) L Height (Feet): 5 Height (Inches): 2.00 Weight (Pounds): 189 Medications Current Medications Medications (Trade) Dose Ordered Sig/Cipriano Route PRN Reason Start Time Stop Time Status Last Admin Dose Admin Acetaminophen (Tylenol) 650 mg Q4H PRN ORAL Mild Pain/Temp > 100.5 09/08/17 16:45 10/08/17 16:44 09/10/17 20:36 Albuterol/ Ipratropium (Albuterol/ Ipratropium) 3 ml Q4HRT HHN 09/08/17 19:00 09/13/17 18:59 09/09/17 15:11 Alprazolam (Xanax) 0.5 mg Q8H PRN ORAL For Anxiety 09/08/17 16:45 09/15/17 16:44 09/10/17 22:21 Amitriptyline HCl (Elavil) 25 mg BEDTIME ORAL 09/08/17 21:00 10/08/17 20:59 09/10/17 20:35 Amlodipine Besylate (Norvasc) 10 mg DAILY ORAL 09/11/17 09:00 10/11/17 08:59 09/11/17 08:39 Ceftriaxone Sodium 1 gm/ Dextrose 110 ml @ 220 mls/hr Q24H IVPB 09/09/17 22:00 09/16/17 21:59 09/10/17 22:21 Escitalopram Oxalate (Lexapro) 10 mg DAILY ORAL 09/11/17 11:15 10/11/17 11:14 Famotidine (Pepcid) 20 mg DAILYPRN PRN ORAL HEARTBURN 09/09/17 09:30 10/09/17 09:29 09/10/17 20:36 Heparin Sodium (Porcine) (Heparin 5000 units/ml) 5,000 units EVERY 12 HOURS SUBQ 09/08/17 22:21 10/08/17 22:20 09/11/17 08:41 Methylprednisolone Sodium Succinate (Solu-MEDROL) 40 mg DAILY IVP 09/11/17 09:00 10/11/17 08:59 09/11/17 08:39 Pantoprazole (Protonix) 40 mg DAILY ORAL 09/10/17 09:00 10/10/17 08:59 09/11/17 08:39 Promethazine HCl/ Codeine (Phenergan with Codeine) 5 ml Q4H PRN ORAL For Cough 09/08/17 16:45 10/08/17 16:44 09/10/17 20:35 Assessment/Plan Status: stable Assessment/Plan Anxiety d/o xanax 0.5 prn lexapro 10mg qam the pt was given script Christina Sharma M.D. Sep 11, 2017 12:00
[2017-09-11] MEDS ORDERED: Miralax 17gm pkt ORAL PRN (12:45)
[2017-09-11 16:00] VITALS: BP 147/81
--- NOTE | 2017-09-11 17:01 | Consultation ---
DATE OF CONSULTATION: 09/11/2017 PULMONARY CONSULTATION HISTORY OF PRESENT ILLNESS: This is a 67-year-old female, who came to the hospital with shortness of breath. The patient was seen and worked up. She reports a previous history of no known medical problems, however, reports an episode of bronchitis about a month ago. The patient then states that she was using some household cleaning products and felt short of breath and wheezy. She came to the hospital and was admitted to the hospital for subsequent management and care. At this point, she has received two days of IV Solu-Medrol and is feeling significantly better. X-ray of the chest and CT chest were both negative except for a nonspecific nodule. PAST MEDICAL HISTORY: Hypertension, breast CA, GERD, gastric ulcer, and hyponatremia. HOME MEDICATIONS: Reviewed and reconciled. ALLERGIES: Sulfa, Depakote, Neurontin, and carbamazepine. SOCIAL HISTORY: No alcohol or tobacco usage. REVIEW OF SYSTEMS: Denies any headaches, hematemesis, melena, or hematochezia. PHYSICAL EXAMINATION: GENERAL: A 67-year-old female. HEENT: Unremarkable. LUNGS: Clear breath sounds bilaterally. There are no rhonchi on lung auscultation. ABDOMEN: Soft. EXTREMITIES: There is no edema. LABORATORY DATA: Unremarkable. IMPRESSION: 1. Bronchospasm, not resolved. 2. Suspect reactive airway dysfunction/disorder. DISCUSSION: I agree with the use of steroids and bronchodilators. At this point, the patient is doing well. I suspect she can transition to p.o. steroids and be discharged home on a taper. Outpatient followup. Denis Palafox M.D. DR: SAI JOB#: [id number] CC:
--- NOTE | 2017-09-12 08:47 | Discharge Summary ---
Discharge Summary Discharge Summary _ DATE OF ADMISSION: 09/08/2017 DATE OF DISCHARGE: 09/11/2017 CONSULTANTS: Dr. Denis Sharma BRIEF HOSPITAL COURSE: Patient is a 67-year-old female, with no prior history of asthma, developed cough, congestion, and what she describes as bronchitis about a month ago. She was treated as an outpatient with azithromycin and inhaled albuterol. She improved slightly, but then had a relapse and returned to the emergency room where she was told to have a clear x-ray and was advised to continue with albuterol and prednisone. She was cleaning the house and was using cleaning products, the scent worsened her congestion, wheezing and cough. Symptoms were so severe and was unable to function at home, she came to the emergency room. On evaluation at ED, blood work did not show any leukocytosis. She had slight hypokalemia. Chest x-ray with no acute disease, no consolidation, no effusion or pneumothorax. She was saturating 96% on room air. EKG was in normal sinus rhythm. She was planned to be discharged home however, she had increased shortness of breath and increased cough and did not feel comfortable going home. She was admitted for further evaluation. She was seen by grappler. She was given bronchodilators and was started on IV Solu-Medrol. She was placed on Rocephin. Chest CT showed a 5 mm left lower lobe nodule likely benign, but because of prior smoking history recommended follow-up CT in [address] was negative. Venous duplex of lower extremity was negative. Echocardiogram was done. She was anxious and has been on Xanax. Psychiatric evaluation was done. She was started on Lexapro 10 mg every morning. She was continued on Xanax 0.5 mg prn. Potassium supplement was given. Amlodipine was increased to 10 mg daily for better BP control. Solu-Medrol was tapered. She was eventually discharged home. FINAL DIAGNOSES: Acute bronchospasm, with no signs of infection Lung nodule likely benign Anxiety disorder DISPOSITION: Patient was discharged home. DISCHARGE INSTRUCTIONS: Follow up with PCP in a week. Recommended follow-up chest CT in 6 months. I have been assigned to dictate discharge summary on this account, and I was not involved in the patient's management. Laury Hayden NP Sep 12, 2017 08:47
--- NOTE | 2017-09-12 18:51 | Cardiology Report ---
APPROVED REPORT EKG Measurement Heart [id number] Normal sinus rhythm Nonspecific T wave abnormality Abnormal ECG
== END 2017-09-11 19:00 | disposition home or self-care (01) | DRG 144 ==
LOC: EMR 11:17 → EDBEDREQ 14:30 → 2E 15:04 → EDBEDREQ 16:03 → 2E 09-10 00:32
DX: J98.01 Acute bronchospasm (principal); E87.1 Hypo-osmolality and hyponatremia; I10 Essential (primary) hypertension; G62.9 Polyneuropathy, unspecified; F41.9 Anxiety disorder, unspecified; R91.1 Solitary pulmonary nodule; Z85.3 Personal history of malignant neoplasm of breast; Z90.12 Acquired absence of left breast and nipple; K21.9 Gastro-esophageal reflux disease without esophagitis; G50.0 Trigeminal neuralgia; Z88.6 Allergy status to analgesic agent; Z88.2 Allergy status to sulfonamides; Z88.8 Allergy status to other drugs, medicaments and biological substances; E87.6 Hypokalemia; E66.9 Obesity, unspecified
CPT/HCPCS: 36415; 70486; 71045; 71250; 80053; 82550; 82553; 83735; 83880; 84443; 84484; 85007; 85025; 87040; 93005; 93306; 93970; 94640; 94664; 94760; 99285; J7620; J8499

== ENCOUNTER 2017-09-27 08:56 | Emergency (ER) | payer MEDICAID ==
[~2017-09-27] VITALS: Ht 160 cm; Wt 79.4 kg
[~2017-09-27 08:56] MED LIST changes: +ROBITUSSIN NIG237 ML PO
[2017-09-27 09:07] VITALS: BP 114/71
--- NOTE | 2017-09-27 09:42 | Emergency Room Report ---
History of Present Illness General Chief Complaint: General Complaint Source: Patient, Medical Record Present Illness HPI Patient presents with one week of headache. It's more on the left-hand side. She feels pressure also in her ears. She denies any sore throat or nasal drainage. She did not document any fever at home. She's vomited twice. She thinks she might have a migraine. She's never been diagnosed with that before. She's never had a headache like this before. The headache is now 9/10. It didn't start with a thunderclap and has been gradual onset and fairly constant. She denies any change in her vision. She's tried taking Aleve, Advil and Excedrin extra strength. She also takes CBD oil and Topamax for trigeminal neuralgia on the right-hand side. This pain feels different than her trigeminal neuralgia. She denies any trauma. She feels some confusion. Had "normal" CT 2013 when diagnosed with trigeminal neuralgia. She feels dehydrated. In the past she's been treated for hyponatremia. She doesn't feel that however she's concerned about her electrolytes at this time. No diarrhea and no dysuria. No other joint pain. No rashes. Allergies: Coded Allergies: SULFA (SULFONAMIDE ANTIBIOTICS) (Verified Allergy, Intermediate, Rash, 10/21) abdominal pain DIVALPROEX SODIUM (Verified Allergy, Mild, 10/21/13) UNKNOWN GABAPENTIN (Verified Allergy, Unknown, 11/25/16) CARBAMAZEPINE (Verified Adverse Reaction, Severe, Shortness of Breath, 10/21) swollen lips,dizziness,skin itching. Patient History Past Medical History: see triage record, old chart reviewed Past Surgical History: other - L lumpectomy Social History: Denies: smoking, alcohol use, drug use Social History Narrative came by bus Last Menstrual Period: 13 yrs ago Reviewed Nursing Documentation: PMH: Agreed; PSxH: Agreed Nursing Documentation-PMH Past Medical History: No History, Except For Hx Cardiac Problems: No - Hyponatremia Hx Hypertension: Yes Hx Cancer: Yes - Left Breat Hx Gastrointestinal Problems: Yes - GERD, Gastric Ulcer Hx Neurological Problems: Yes - Trigeminal neuralgia Hx Weakness: Yes Hx Fatigue: Yes Review of Systems All Other Systems: negative except mentioned in HPI Physical Exam Vital Signs Date Time Temp Pulse Resp B/P (MAP) Pulse Ox O2 Delivery O2 Flow Rate FiO2 09/27/17 09:02 97.7 94 18 114/71 95 Room Air 97.7 Sp02 EP Interpretation: reviewed, normal General Appearance: well appearing, no apparent distress, GCS 15 Head: normocephalic Eyes: bilateral eye normal inspection, bilateral eye PERRL, bilateral eye EOMI ENT: normal pharynx, TMs + canals normal, dry mucus membranes Neck: supple, no meningismus Respiratory: lungs clear, normal breath sounds Cardiovascular #1: regular rate, rhythm Cardiovascular #2: 2+ radial (R) Gastrointestinal: normal inspection, normal bowel sounds, non tender, no mass, non-distended Musculoskeletal: back normal, gait/station normal, normal range of motion Neurologic: alert, oriented x3, associate media director III-XII nml as tested, motor strength/tone normal, DTRs symmetric, sensory intact, cerebellar normal, normal gait, speech normal Psychiatric: anxious Skin: normal inspection, warm/dry Medical Decision Making Diagnostic Impression: Primary Impression: Cephalgia Qualified Codes: R51 - Headache ER Course Patient presents with headache. Differential includes viral syndrome, sinusitis , migraine, tension amongst others. She has a nonfocal neurologic exam and at this point we will begin treatment. If the pain is resolved with medication CT may not be indicated. In addition patient will be evaluated with EKG and labs including a sedimentation rate. The fact she's had hyponatremia in the past makes it incumbent to rule out this condition. She will be treated with Reglan , Benadryl and Toradol. EKG no injury. Labs with normal CBC, CMP, ESR, UA, coags. Pain resolved completely. Discussed follow up with patient. Patient stable for outpatient observation and treatment. Laboratory Tests Test 09/27/17 09:20 White Blood Count 6.6 K/UL (4.8-10.8) Red Blood Count 4.28 M/UL (4.20-5.40) Hemoglobin 12.4 G/DL (12.0-16.0) Hematocrit 37.5 % (37.0-47.0) Mean Corpuscular Volume 88 FL (80-99) Mean Corpuscular Hemoglobin 29.0 PG (27.0-31.0) Mean Corpuscular Hemoglobin Concent 33.1 G/DL (32.0-36.0) Red Cell Distribution Width 12.4 % (11.6-14.8) Platelet Count 288 K/UL (150-450) Mean Platelet Volume 6.4 FL (6.5-10.1) L Neutrophils (%) (Auto) 52.1 % (45.0-75.0) Lymphocytes (%) (Auto) 33.4 % (20.0-45.0) Monocytes (%) (Auto) 11.3 % (1.0-10.0) H Eosinophils (%) (Auto) 1.5 % (0.0-3.0) Basophils (%) (Auto) 1.8 % (0.0-2.0) Erythrocyte Sedimentation Rate 29 MM/HR (0-30) Prothrombin Time 9.6 SEC (9.30-11.50) Prothrombin Time INR 0.9 (0.9-1.1) PTT 29 SEC (23-33) Urine Color Pale yellow Urine Appearance Clear Urine pH 8 (4.5-8.0) Urine Specific [place] 1.010 (1.005-1.035) Urine Protein Negative (NEGATIVE) Urine Glucose (UA) Negative (NEGATIVE) Urine Ketones Negative (NEGATIVE) Urine Occult Blood Negative (NEGATIVE) Urine Nitrite Negative (NEGATIVE) Urine Bilirubin Negative (NEGATIVE) Urine Urobilinogen Normal MG/DL (0.0-1.0) Urine Leukocyte Esterase 1+ (NEGATIVE) H Urine RBC 0-2 /HPF (0 - 2) Urine WBC 0-2 /HPF (0 - 2) Urine Squamous Epithelial Cells Occasional /LPF Urine Bacteria Few /HPF (NONE) Sodium Level 136 MMOL/L (136-145) Potassium Level 3.4 MMOL/L (3.5-5.1) L Chloride Level 100 MMOL/L (98-107) Carbon Dioxide Level 26 MMOL/L (21-32) Anion Gap 10 mmol/L (5-15) Blood Urea Nitrogen 11 mg/dL (7-18) Creatinine 0.7 MG/DL (0.55-1.30) Estimate Glomerular Filtration Rate > 60 mL/min (>60) Glucose Level 111 MG/DL (74-106) H Calcium Level 8.7 MG/DL (8.5-10.1) Total Bilirubin 0.7 MG/DL (0.2-1.0) Aspartate Amino Transferase (AST) 17 U/L (15-37) Alanine Aminotransferase (ALT) 33 U/L (12-78) Alkaline Phosphatase 56 U/L (46-116) Total Creatine Kinase 100 U/L (26-308) Troponin I 0.000 ng/mL (0.000-0.056) Pro-B-Type Natriuretic Peptide 43 pg/mL (0-125) Total Protein 6.9 G/DL (6.4-8.2) Albumin 3.5 G/DL (3.4-5.0) Globulin 3.4 g/dL Albumin/Globulin Ratio 1.0 (1.0-2.7) EKG Diagnostic Results Rate: normal Rhythm: NSR ST Segments: no acute changes Rhythm Strip Diag. Results EP Interpretation: yes Rhythm: NSR, no PVC's, no ectopy Last Vital Signs Date Time Temp Pulse Resp B/P (MAP) Pulse Ox O2 Delivery O2 Flow Rate FiO2 09/27/17 12:02 98.2 70 17 128/74 99 Room Air 98.2 Status: improved Disposition: HOME, SELF-CARE Condition: Improved Scripts Ondansetron Odt* (ZOFRAN ODT*) 4 Mg Tab.rapdis 4 MG BC EVERY 8 HOURS, #6 TAB 1 Refill Prov: Jude Tinajero M.D. 09/27/17 Tramadol Hcl* (ULTRAM*) 50 Mg Tablet 50 MG ORAL Q6H PRN for For Pain, #10 TAB 0 Refills Prov: Jude Tinajero M.D. 09/27/17 Naproxen* (NAPROXEN*) 375 Mg Tablet. 375 MG ORAL TWICE A DAY, #14 TAB Prov: Jude Tinajero M.D. 09/27/17 Jude Tinajero M.D. Sep 27, 2017 09:42
[2017-09-27] MEDS ORDERED: Ketorolac 30mg Inj IV ONE (09:45)
[2017-09-27] MEDS ORDERED: Metoclopramide 10mg/2ml Inj IVP ONE (09:45)
[2017-09-27] MEDS ORDERED: DiphenhydrAMINE 50mg/ml Inj IVP ONE (09:45)
[2017-09-27 09:56] LABS: APPEARANCE,URINE CLEAR; BILIRUBIN, URINE NEGATIVE (NEGATIVE); COLOR,URINE PALE YELLOW; GLUCOSE, URINE (UA) NEGATIVE (NEGATIVE); KETONES,URINE NEGATIVE (NEGATIVE); LEUKOCYTE ESTERASE ,URINE 1+ (NEGATIVE); NITRITE,URINE NEGATIVE (NEGATIVE); PH,URINE 8 (4.5-8.0); PROTEIN,URINE NEGATIVE (NEGATIVE); UROBILINOGEN,URINE NORMAL MG/DL (0.0-1.0)
[2017-09-27 10:01] LABS: ANION GAP 10 mmol/L (5-15); BLOOD UREA NITROGEN 11 mg/dL (7-18); CALCIUM 8.7 MG/DL (8.5-10.1); CARBON DIOXIDE 26 MMOL/L (21-32); CHLORIDE 100 MMOL/L (98-107); CREATININE 0.7 MG/DL (0.55-1.30); POTASSIUM 3.4 MMOL/L (3.5-5.1); SODIUM 136 MMOL/L (136-145)
[2017-09-27 10:03] LABS: INR 0.9 (0.9-1.1)
[2017-09-27 10:12] LABS: ALANINE AMINOTRANSFERASE 33 U/L (12-78); ALBUMIN 3.5 G/DL (3.4-5.0); ALKALINE PHOSPHATASE 56 U/L (46-116); ASPARTATE AMINO TRANSFERASE 17 U/L (15-37); BILIRUBIN,TOTAL 0.7 MG/DL (0.2-1.0); CREATINE KINASE 100 U/L (26-308)
[2017-09-27 10:13] VITALS: BP 126/63
[2017-09-27 10:25] LABS: BASOPHILS % (AUTO) 1.8 % (0.0-2.0); EOSINOPHILS % (AUTO) 1.5 % (0.0-3.0); HEMATOCRIT 37.5 % (37.0-47.0); HEMOGLOBIN 12.4 G/DL (12.0-16.0); LYMPHOCYTES % (AUTO) 33.4 % (20.0-45.0); MEAN CORPUSCULAR VOLUME 88 FL (80-99); MONOCYTES % (AUTO) 11.3 % (1.0-10.0); NEUTROPHILS % (AUTO) 52.1 % (45.0-75.0); PLATELET COUNT 288 K/UL (150-450); RED BLOOD COUNT 4.28 M/UL (4.20-5.40); RED CELL DISTRIBUTION WIDTH 12.4 % (11.6-14.8); WHITE BLOOD COUNT 6.6 K/UL (4.8-10.8)
[2017-09-27 11:05] VITALS: BP 139/71
[2017-09-27] MEDS ORDERED: ONDANSETRON ODT4 MG BC (11:53)
[2017-09-27] MEDS ORDERED: TRAMADOL HCL50 MG ORAL (11:53)
[2017-09-27] MEDS ORDERED: NAPROXEN375 M2 ORAL (11:53)
[2017-09-27 12:02] VITALS: BP 128/74
--- NOTE | 2017-09-29 13:33 | Cardiology Report ---
APPROVED REPORT EKG Measurement Heart [id number] [id number] Normal sinus rhythm Nonspecific T wave abnormality Abnormal ECG
== END 2017-09-27 12:05 | disposition home or self-care (01) ==
LOC: EMR 09:37
DX: R51 Headache (principal); I10 Essential (primary) hypertension; K21.9 Gastro-esophageal reflux disease without esophagitis; Z87.11 Personal history of peptic ulcer disease; Z85.3 Personal history of malignant neoplasm of breast; Z88.2 Allergy status to sulfonamides; Z88.8 Allergy status to other drugs, medicaments and biological substances
CPT/HCPCS: 36415; 80053; 81003; 82550; 83880; 84484; 85025; 85610; 85651; 85730; 93005; 99284; J1200; J1885; J2765

== ENCOUNTER 2017-10-09 15:30 | Emergency (ER) | payer MEDICAID ==
[~2017-10-09] VITALS: Ht 157.5 cm; Wt 83.9 kg
[~2017-10-09 15:30] MED LIST changes: +NAPROXEN375 M2 ORAL; +ONDANSETRON ODT4 MG BC; +TRAMADOL HCL50 MG ORAL
[2017-10-09] MEDS ORDERED: Ketorolac 30mg Inj IM ONE (16:15)
--- NOTE | 2017-10-09 16:17 | Emergency Room Report ---
History of Present Illness General Chief Complaint: Headache Source: Patient Present Illness HPI 67-year-old female patient presents ER complaining of headache. Reports headache has been present since the beginning of the month. Reports cough and earache symptoms have been present for 3 days. Denies hemoptysis. Denies tinnitus. Denies ear drainage. Denies vertigo. Denies hx of asthma. Reports that she was previously seen seen here at [facility] [facility] for similar symptoms. Reports that she receive medication while at the ER that was able to relief her headache symptoms, states that he was the only 3 days without headache that she had during this month. Reports prior to previous ER visit she was seen by her primary care provider and prescribed Topiramate, states she was told it may take some time before it begins working. Reports hx of migraine headaches. Reports she has been taking these meds since that time. Denies nausea, vomiting , chest pain, shortness of breath, abdominal pain. Denies vision changes or vision loss. Denies ringing in ears. Reports has not had imaging done for several years. Denies dysuria. Denies jaw pain. Allergies: Coded Allergies: SULFA (SULFONAMIDE ANTIBIOTICS) (Verified Allergy, Intermediate, Rash, 10/21) abdominal pain DIVALPROEX SODIUM (Verified Allergy, Mild, 10/21/13) UNKNOWN GABAPENTIN (Verified Allergy, Unknown, 11/25/16) CARBAMAZEPINE (Verified Adverse Reaction, Severe, Shortness of Breath, 10/21) swollen lips,dizziness,skin itching. Patient History Past Medical History: see triage record Last Menstrual Period: NA Now: No Reviewed Nursing Documentation: PMH: Agreed; PSxH: Agreed Nursing Documentation-PMH Past Medical History: No History, Except For Hx Cardiac Problems: No - Hyponatremia Hx Hypertension: Yes Hx Cancer: Yes - Left Breat Hx Gastrointestinal Problems: Yes - GERD, Gastric Ulcer Hx Neurological Problems: Yes - Trigeminal neuralgia Hx Weakness: Yes Hx Fatigue: Yes Review of Systems All Other Systems: negative except mentioned in HPI Physical Exam Vital Signs Date Time Temp Pulse Resp B/P (MAP) Pulse Ox O2 Delivery O2 Flow Rate FiO2 10/09/17 15:38 98.0 101 20 152/84 93 Room Air 98.1 Sp02 EP Interpretation: reviewed, normal General Appearance: well appearing, no apparent distress, alert, GCS 15, non- toxic Head: normocephalic, atraumatic, other - no sinus tenderness to palpation, no temporal artery tenderness to palpation Eyes: bilateral eye normal inspection, bilateral eye PERRL, bilateral eye EOMI ENT: hearing grossly normal, normal pharynx, no angioedema, normal voice, TMs + canals normal - no effusion, no TM rupture, uvula midline, moist mucus membranes Neck: full range of motion Respiratory: lungs clear, normal breath sounds, no rhonchi, no respiratory distress, no accessory muscle use, no wheezing, speaking full sentences Cardiovascular #1: regular rate, rhythm, no edema Gastrointestinal: non tender, soft, no mass, non-distended, no guarding, no rebound Genitourinary: no CVA tenderness Musculoskeletal: back normal, digits/nails normal, gait/station normal, normal range of motion, non-tender, no calf tenderness, Pirce's Sign negative Neurologic: alert, oriented x3, responsive, 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 Negative Kernig, negative Brudzinski Psychiatric: mood/affect normal Skin: no rash Lymphatic: no adenopathy Medical Decision Making PA Attestation Dr. Resendez is my supervising Physician whom patient management has been discussed with. Diagnostic Impression: Primary Impression: Headache ER Course Pt presents to ED c/o headache. DDX considered but are not limited to migraine, cluster TURCIOS, tension TURCIOS, meningitis, ICH, meningitis, otitis media, otitis externa, temporal arteritis. Negative Kernig, negative Brudzinski, afebrile, low suspicion for meningitis. No vision changes, no cloudy cornea, low suspicion for glaucoma. Tenderness to palpation over temporal arteries bilaterally, afebrile, low suspicion for temporal arteritis. Denies dysuria, hematuria, low suspicion for UTI, does not require UA at this time. Due the length of symptoms, will order CT of head. VITAL SIGNS are WNL, patient is afebrile Blood pressure mildly elevated at this time, will continue to monitor. Denies chest pain, shortness of breath, vision changes, does not require acute intervention at ER at this time. Follow with primary care provider discuss further treatment and referral. Advised on low-sodium diet, advised on diet and exercise. ER COURSE Reviewed previous ER charts. Physical exam benign, lungs clear to auscultation. Patient had labs done previously at [facility] <2 weeks ago, do not believe patient requires repeat labs at this time. Afebrile, nontoxic appearing. No worsening of symtpoms. Will provide patient with Reglan, Benadryl, and Toradol. Patient did not cough while in the ER. Lungs clear to auscultation, patient afebrile, low suspicion for pneumonia, does not require imaging at this time. No hemoptysis, no chest pain, no calf swelling, no SOB, no recent immobilization or travel, low suspicion for PE per Well's Criteria, does not require labs or imaging at this time. Earache and cough may be viral in nature, does not require abx treatment, take Tylenol for symptom relief. Nonerythematous TM, normal light reflex, no excessive cerumen, canals clear, nonerythematous, does not require abx tx. Followup with ENT. CT head negative for acute disease. Informed patient of results. Followup with PCP to discuss referral to neuro specialist. patient states she will call her physician tomorrow. Continue to take medications as previously instructed. Patient reports pain improved. Reports all symptoms improved while in the ER. Patient is AOx3, neurologically intact, no focal neuro deficits, nontoxic appearing, and ambulatory. DISCHARGE: -Rx provided Tylenol At this time pt is stable for d/c to home. Patient is resting comfortably, in no acute distress, nontoxic appearing, talking and smiling. Will provide with patient care instructions and any necessary prescriptions. Patient to take medication as instructed. Care plan and follow-up instructions provided. Patient questions asked and answered. Patient instructed to follow-up with primary care provider in the next 3 days and discuss further referral with PCP to neurologist. ER precautions given. Patient instructed to return to ER immediately for any new or worsening of symptoms including but not limited to fever, neck stiffness , vision changes, and neurological symptoms. - Please note that this Emergency Department Report was dictated using [employer] technology software, occasionally this can lead to erroneous entry secondary to interpretation by the dictation equipment. CT/MRI/US Diagnostic Results CT/MRI/US Diagnostic Results : Imaging Test Ordered: CT HEAD Impression negative for acute disease. Last Vital Signs Date Time Temp Pulse Resp B/P (MAP) Pulse Ox O2 Delivery O2 Flow Rate FiO2 7/25/18 15:38 98.0 101 20 152/84 93 Room Air 98.1 Status: improved Disposition: HOME, SELF-CARE Condition: Stable Scripts Acetaminophen* (TYLENOL EXTRA STRENGTH*) 500 Mg Tablet 500 MG ORAL Q8H PRN for Prn Headache/Temp > 101, #30 TAB 0 Refills Prov: Jai Catalan 10/09/17 Patient Instructions: Migraine Headache Additional Instructions: Followup with primary care provider in 3 -5 days. Discuss referral to neuro. Take medications as directed. Continue to take medications as previously instructed. Patient questions asked and answered. ER precautions given, patient instructed to return to ER immediately for any new or worsening of symptoms. Jai Catalan Oct 09, 2017 16:17
--- NOTE | 2017-10-09 16:49 | Diagnostic Imaging Report ---
Indications: Vertigo, headache, earache Technique: Spiral acquisitions obtained through the brain. Angled axial and coronal 5 x 5 mm slices were reconstructed. Total dose length product 1421.83 mGycm. CTDI vol(s) 70.38 mGy. Dose reduction achieved using automated exposure control Comparison: 10/21/2013 Findings: Again demonstrated is mild age-related prominence to the ventricles and extra axial CSF spaces, and mild periventricular deep white matter low-attenuation consistent with chronic ischemic change. Is normal with lacunar infarct in the right posterior frontal deep white matter again demonstrated No acute intrarenal hemorrhage or edema, mass effect, nor midline shift. Otherwise normal ibarra-white differentiation. The mastoids are clear. The visualized orbits and sinuses are unremarkable. The calvarium is intact. Impression: Chronic and age-related changes as described Negative for acute intracranial bleed or mass effect The CT scanner at [facility] is accredited by the [employer] and the scans are performed using protocols designed to limit radiation exposure to as low as reasonably achievable to attain images of sufficient resolution adequate for diagnostic evaluation.
[2017-10-09] MEDS ORDERED: TYLENOL EXTRA500 MG ORAL (17:24)
[2017-10-09 17:47] VITALS: BP 152/84
== END 2017-10-09 17:49 | disposition home or self-care (01) ==
LOC: EMR 16:13
DX: R51 Headache (principal); I10 Essential (primary) hypertension; Z85.3 Personal history of malignant neoplasm of breast; K21.9 Gastro-esophageal reflux disease without esophagitis; Z88.2 Allergy status to sulfonamides; Z88.8 Allergy status to other drugs, medicaments and biological substances
CPT/HCPCS: 70450; 96372; 99284; J1885

== ENCOUNTER 2018-01-16 15:07 | Emergency (ER) | payer MEDICAID ==
[~2018-01-16] VITALS: Ht 157.5 cm; Wt 88.9 kg
[~2018-01-16 15:07] MED LIST changes: +TYLENOL EXTRA500 MG ORAL
[2018-01-16 16:05] VITALS: BP 188/90
[2018-01-16 16:06] LABS: APPEARANCE,URINE CLEAR; BILIRUBIN, URINE NEGATIVE (NEGATIVE); COLOR,URINE PALE YELLOW; GLUCOSE, URINE (UA) NEGATIVE (NEGATIVE); KETONES,URINE NEGATIVE (NEGATIVE); LEUKOCYTE ESTERASE ,URINE NEGATIVE (NEGATIVE); NITRITE,URINE NEGATIVE (NEGATIVE); PH,URINE 7 (4.5-8.0); PROTEIN,URINE 2+ (NEGATIVE); UROBILINOGEN,URINE NORMAL MG/DL (0.0-1.0)
--- NOTE | 2018-01-16 16:28 | Diagnostic Imaging Report ---
Indication: Reason For Exam: COUGH Technique: One view of the chest Comparison: 09/08/2017 Findings: Body habitus limits evaluation. No acute infiltrates, effusions, or congestion. Tortuous calcified aorta. Normal heart size. Upper mediastinum unremarkable. No significant interim change Impression: No acute process.
[2018-01-16 16:30] LABS: BASOPHILS % (AUTO) 1.7 % (0.0-2.0); EOSINOPHILS % (AUTO) 1.3 % (0.0-3.0); HEMOGLOBIN 13.2 G/DL (12.0-16.0); LYMPHOCYTES % (AUTO) 32.2 % (20.0-45.0); MEAN CORPUSCULAR VOLUME 89 FL (80-99); MONOCYTES % (AUTO) 6.3 % (1.0-10.0); NEUTROPHILS % (AUTO) 58.5 % (45.0-75.0); PLATELET COUNT 326 K/UL (150-450); RED BLOOD COUNT 4.39 M/UL (4.20-5.40); WHITE BLOOD COUNT 8.6 K/UL (4.8-10.8)
[2018-01-16 16:44] LABS: ANION GAP 9 mmol/L (5-15); BLOOD UREA NITROGEN 18 mg/dL (7-18); CALCIUM 9.6 MG/DL (8.5-10.1); CARBON DIOXIDE 29 MMOL/L (21-32); CHLORIDE 103 MMOL/L (98-107); CREATININE 0.8 MG/DL (0.55-1.30); POTASSIUM 3.7 MMOL/L (3.5-5.1); SODIUM 141 MMOL/L (136-145)
[2018-01-16 16:55] LABS: ALANINE AMINOTRANSFERASE 28 U/L (12-78); ALBUMIN/GLOBULIN RATIO 1.1 (1.0-2.7); ALKALINE PHOSPHATASE 71 U/L (46-116); ASPARTATE AMINO TRANSFERASE 19 U/L (15-37); BILIRUBIN,TOTAL 0.5 MG/DL (0.2-1.0)
[2018-01-16] MEDS ORDERED: Albuterol ud Inhalation HHN ONE (17:45)
--- NOTE | 2018-01-16 18:09 | Emergency Room Report ---
History of Present Illness General Chief Complaint: Upper Respiratory Illness Source: Patient Present Illness HPI This patient states that she has had more than 2 weeks of cough and congestion. She states that over the past few days she's had more severe cough and has felt short of breath. She denies fever or chills. She denies nausea or vomiting. She states that she does have a history of hyponatremia and hypokalemia. She also has noticed intermittent swelling in her hands and face. She states this has been occurring intermittently for many months. She denies headache or neck pain. She denies sore throat. She denies abdominal pain. She denies chest pain. She has no other complaints. Allergies: Coded Allergies: SULFA (SULFONAMIDE ANTIBIOTICS) (Verified Allergy, Intermediate, Rash, 10/21) abdominal pain DIVALPROEX SODIUM (Verified Allergy, Mild, 10/21/13) UNKNOWN GABAPENTIN (Verified Allergy, Unknown, 11/25/16) CARBAMAZEPINE (Verified Adverse Reaction, Severe, Shortness of Breath, 10/21) swollen lips,dizziness,skin itching. Patient History Past Medical History: see triage record, GERD, other - Electrolyte abnormalities Social History: Denies: smoking, alcohol use, drug use Now: No Reviewed Nursing Documentation: PMH: Agreed; PSxH: Agreed Nursing Documentation-PMH Past Medical History: No History, Except For Hx Cardiac Problems: No - Hyponatremia Hx Hypertension: Yes Hx Cancer: Yes - Left Breat Hx Gastrointestinal Problems: Yes - GERD, Gastric Ulcer Hx Neurological Problems: Yes - Trigeminal neuralgia Hx Weakness: Yes Hx Fatigue: Yes Review of Systems All Other Systems: negative except mentioned in HPI Physical Exam Vital Signs Date Time Temp Pulse Resp B/P (MAP) Pulse Ox O2 Delivery O2 Flow Rate FiO2 01/16/18 15:27 98.1 98 20 206/109 94 Room Air Sp02 EP Interpretation: reviewed, normal General Appearance: no apparent distress, alert, GCS 15, non-toxic Head: normocephalic, atraumatic Eyes: bilateral eye normal inspection, bilateral eye PERRL ENT: hearing grossly normal, normal pharynx, no angioedema, normal voice Neck: full range of motion, supple/symm/no masses Respiratory: chest non-tender, lungs clear, normal breath sounds, no respiratory distress, no retraction, no accessory muscle use, speaking full sentences Cardiovascular #1: regular rate, rhythm, no edema Gastrointestinal: normal bowel sounds, non tender, soft, non-distended, no guarding, no rebound Rectal: deferred Musculoskeletal: back normal, gait/station normal, normal range of motion, non- tender Neurologic: alert, oriented x3, responsive, motor strength/tone normal, sensory intact, speech normal Psychiatric: judgement/insight normal, memory normal, mood/affect normal, no suicidal/homicidal ideation Skin: normal color, no rash, warm/dry, well hydrated Medical Decision Making Diagnostic Impression: Primary Impression: Bronchitis ER Course This patient has a clinical presentation with bronchitis. The evaluation was very reassuring with a normal lung exam, no respiratory distress, normal pulse oximetry. Chest x-ray shows no evidence of pneumonia. The patient does have a history of 10 years of heavy tobacco use. She has seasonal allergies. She was given an albuterol nebulizer treatment. Given the length and persistence of the patient's symptoms and a history of tobacco use, I will go ahead and place the patient on a course of antibiotics. No emergency medical condition was identified. The patient is given close return precautions and follow-up instructions. Laboratory Tests Test 01/16/18 15:49 01/16/18 16:05 Urine Color Pale yellow Urine Appearance Clear Urine pH 7 (4.5-8.0) Urine Specific [place] 1.005 (1.005-1.035) Urine Protein 2+ (NEGATIVE) H Urine Glucose (UA) Negative (NEGATIVE) Urine Ketones Negative (NEGATIVE) Urine Blood 1+ (NEGATIVE) H Urine Nitrite Negative (NEGATIVE) Urine Bilirubin Negative (NEGATIVE) Urine Urobilinogen Normal MG/DL (0.0-1.0) Urine Leukocyte Esterase Negative (NEGATIVE) Urine RBC 0-2 /HPF (0 - 2) Urine WBC 0 /HPF (0 - 2) Urine Squamous Epithelial Cells Few /LPF (NONE/OCC) Urine Bacteria None /HPF (NONE) White Blood Count 8.6 K/UL (4.8-10.8) Red Blood Count 4.39 M/UL (4.20-5.40) Hemoglobin 13.2 G/DL (12.0-16.0) Hematocrit 39.0 % (37.0-47.0) Mean Corpuscular Volume 89 FL (80-99) Mean Corpuscular Hemoglobin 30.1 PG (27.0-31.0) Mean Corpuscular Hemoglobin Concent 33.9 G/DL (32.0-36.0) Red Cell Distribution Width 12.0 % (11.6-14.8) Platelet Count 326 K/UL (150-450) Mean Platelet Volume 6.3 FL (6.5-10.1) L Neutrophils (%) (Auto) 58.5 % (45.0-75.0) Lymphocytes (%) (Auto) 32.2 % (20.0-45.0) Monocytes (%) (Auto) 6.3 % (1.0-10.0) Eosinophils (%) (Auto) 1.3 % (0.0-3.0) Basophils (%) (Auto) 1.7 % (0.0-2.0) Sodium Level 141 MMOL/L (136-145) Potassium Level 3.7 MMOL/L (3.5-5.1) Chloride Level 103 MMOL/L (98-107) Carbon Dioxide Level 29 MMOL/L (21-32) Anion Gap 9 mmol/L (5-15) Blood Urea Nitrogen 18 mg/dL (7-18) Creatinine 0.8 MG/DL (0.55-1.30) Estimate Glomerular Filtration Rate > 60 mL/min (>60) Glucose Level 100 MG/DL (74-106) Calcium Level 9.6 MG/DL (8.5-10.1) Total Bilirubin 0.5 MG/DL (0.2-1.0) Aspartate Amino Transferase (AST) 19 U/L (15-37) Alanine Aminotransferase (ALT) 28 U/L (12-78) Alkaline Phosphatase 71 U/L (46-116) Troponin I 0.003 ng/mL (0.000-0.056) Pro-B-Type Natriuretic Peptide 147 pg/mL (0-125) H Total Protein 7.7 G/DL (6.4-8.2) Albumin 4.0 G/DL (3.4-5.0) Globulin 3.7 g/dL Albumin/Globulin Ratio 1.1 (1.0-2.7) Microbiology Date/Time Source Procedure Growth Status 01/16/18 16:44 Nasal Nares Influenza Types A,B Antigen (DARWIN) - Final Complete EKG Diagnostic Results Rate: normal Rhythm: NSR ST Segments: no acute changes Rhythm Strip Diag. Results EP Interpretation: yes Rate: 90's Rhythm: NSR, no PVC's, no ectopy Chest X-Ray Diagnostic Results Chest X-Ray Diagnostic Results : Chest X-Ray Ordered: Yes # of Views/Limited/Complete: 1 View Indication: Shortness of Breath EP Interpretation: No Interpretation: no consolidation, no effusion, no pneumothorax, no acute cardiopulmonary disease Impression: No acute disease Electronically Signed by: Muna Last Vital Signs Date Time Temp Pulse Resp B/P (MAP) Pulse Ox O2 Delivery O2 Flow Rate FiO2 01/16/18 16:05 82 16 Room Air 01/16/18 16:05 98.5 188/90 96 Status: improved Disposition: HOME, SELF-CARE Condition: Improved Referrals: NON PHYSICIAN (PCP) Manju Beltran DO Jan 16, 2018 18:09
[2018-01-16] MEDS ORDERED: ZITHROMAX250 MG ORAL ×2 (18:11→18:43)
[2018-01-16 19:21] VITALS: BP 158/90
[2018-01-16 19:22] VITALS: BP 158/90
--- NOTE | 2018-01-18 15:09 | Cardiology Report ---
APPROVED REPORT EKG Measurement Heart [id number] Normal sinus rhythm Normal ECG
== END 2018-01-16 19:23 | disposition home or self-care (01) ==
LOC: EMR 15:43
DX: J40 Bronchitis, not specified as acute or chronic (principal); K21.9 Gastro-esophageal reflux disease without esophagitis; I10 Essential (primary) hypertension; Z88.2 Allergy status to sulfonamides; Z88.8 Allergy status to other drugs, medicaments and biological substances; Z85.3 Personal history of malignant neoplasm of breast
CPT/HCPCS: 36415; 71045; 80053; 81003; 83880; 84484; 85025; 86710; 87040; 93005; 94640; 94664; 99284

== ENCOUNTER 2018-05-04 21:13 | Emergency (ER) | payer MEDICAID ==
[~2018-05-04] VITALS: Ht 160 cm; Wt 83.9 kg
[2018-05-04 21:35] VITALS: BP 183/83
--- NOTE | 2018-05-04 21:37 | NUR ---
ED Nurse Note: PT walked into ER stating that she has a fever. triage oral temp it 98.1 F
[2018-05-04] MEDS ORDERED: Albuterol/Ipratropium 3ml neb HHN ONE (22:30)
[2018-05-05] MEDS ORDERED: PREDNISONE20 MG ORAL
[2018-05-05] MEDS ORDERED: ALBUTEROL SULF8.5 GM INH
[2018-05-05] MEDS ORDERED: ZITHROMAX250 MG ORAL
[2018-05-05 00:05] VITALS: BP 152/85
--- NOTE | 2018-05-05 00:20 | NUR ---
ER DISCHARGE NOTE: Patient is cleared to be discharged per ERMD, pt is aox4, on room air, with stable vital signs. pt was given dc and prescription instructions, pt was able to verbalize understanding, pt id band and iv site removed without complications. pt is able to ambulate with steady gait. pt took all belongings.
--- NOTE | 2018-05-05 03:54 | Emergency Room Report ---
History of Present Illness General Chief Complaint: Fever Source: Patient Present Illness HPI 67-year-old female who presented after increased cough and congestion. Patient gradual onset of symptoms. She was noted to have prior history of pulmonary disease. She reported having increased nonproductive cough. Patient had gradual onset of increased difficulty breathing. She had some subjective fever for the past 3 days. Patient had been ill for approximately 10 days. Allergies: Coded Allergies: SULFA (SULFONAMIDE ANTIBIOTICS) (Verified Allergy, Intermediate, Rash, 10/21) abdominal pain DIVALPROEX SODIUM (Verified Allergy, Mild, 10/21/13) UNKNOWN GABAPENTIN (Verified Allergy, Unknown, 11/25/16) CARBAMAZEPINE (Verified Adverse Reaction, Severe, Shortness of Breath, 10/21) swollen lips,dizziness,skin itching. Patient History Past Medical History: see triage record Last Menstrual Period: 13 years ago Now: No : 2 Para: 1 Reviewed Nursing Documentation: PMH: Agreed; PSxH: Agreed Nursing Documentation-PMH Hx Cardiac Problems: No - Hyponatremia Hx Hypertension: Yes Hx Cancer: Yes - Left Breat Hx Gastrointestinal Problems: Yes - GERD, Gastric Ulcer Hx Neurological Problems: Yes - Trigeminal neuralgia Hx Weakness: Yes Hx Fatigue: Yes Review of Systems All Other Systems: negative except mentioned in HPI Physical Exam Vital Signs Date Time Temp Pulse Resp B/P (MAP) Pulse Ox O2 Delivery O2 Flow Rate FiO2 05/04/18 21:16 98.1 63 14 185/84 98 Room Air 05/04/18 21:35 98 General Appearance: well appearing, no apparent distress, alert, GCS 15, Chronically Ill Head: normocephalic, atraumatic ENT: hearing grossly normal, normal voice Neck: full range of motion, supple Respiratory: no respiratory distress, speaking full sentences, wheezing Cardiovascular #1: normal inspection Gastrointestinal: normal inspection Musculoskeletal: no calf tenderness Neurologic: normal inspection, alert, oriented x3, responsive, normal gait Psychiatric: normal inspection, mood/affect normal Skin: no rash Medical Decision Making Diagnostic Impression: Primary Impression: Fever Additional Impression: Pneumonitis ER Course . Patient presented for shortness of breath. Differential included but was not limited to anemia, pneumonia, pneumothorax, myocardial infarction, pericardial effusion, congestive heart failure, acidosis patient has a benign exam and does not appear to require any laboratory testing at this time. Chest x-ray 1 view interpreted by me showed normal cardiac size with right lung small infiltrate. Patient is noted to have normal oxygen saturation. She was given breathing treatment with improvement. Patient was advised to follow-up with her primary care physician for recheck. She is given prescription for antibiotics for pneumonitis. Patient states that she had previously had increased anxiety with steroid use and was told to only take steroids of she continued to have difficulty breathing. Patient was advised to return if she had any worsening of condition Last Vital Signs Date Time Temp Pulse Resp B/P (MAP) Pulse Ox O2 Delivery O2 Flow Rate FiO2 05/05/18 00:05 98.1 85 18 152/85 98 Room Air 21 Status: improved Disposition: HOME, SELF-CARE Condition: Stable Scripts Azithromycin* (ZITHROMAX*) 250 Mg Tablet 250 MG ORAL DAILY, #6 TAB 0 Refills Take two tables once daily for 1 day, then one tablet once daily for 4 days. Prov: Scotty Resendez MD 05/05/18 Prednisone* (PREDNISONE*) 20 Mg Tablet 60 MG ORAL DAILY for 5 Days, #10 TAB Prov: Scotty Resendez MD 05/05/18 Albuterol Sulfate* (ALBUTEROL SULFATE MDI*) 8.5 Gm Hfa.aer.ad 2 PUFF INH Q6H, #1 EA 0 Refills Prov: Scotty Resendez MD 05/05/18 Referrals: [facility],REFERRING (PCP) Patient Instructions: Pneumonitis Scotty Resendez MD May 05, 2018 03:54
--- NOTE | 2018-05-05 13:57 | Diagnostic Imaging Report ---
Indication: Dyspnea Comparison: 01/16/2018 A single view chest radiograph was obtained. Findings: Blunting of the left costophrenic angle again demonstrated. Borderline cardiomegaly is present. IMPRESSION: Small left pleural effusion versus pleural thickening
== END 2018-05-05 00:05 | disposition home or self-care (01) ==
LOC: EMR 21:35
DX: J18.9 Pneumonia, unspecified organism (principal); I10 Essential (primary) hypertension; K21.9 Gastro-esophageal reflux disease without esophagitis; Z87.11 Personal history of peptic ulcer disease; Z85.3 Personal history of malignant neoplasm of breast; Z88.1 Allergy status to other antibiotic agents; Z88.8 Allergy status to other drugs, medicaments and biological substances; Z88.2 Allergy status to sulfonamides
CPT/HCPCS: 71045; 86710; 94640; 99284; J7620

== ENCOUNTER 2018-10-31 03:01 | Emergency (ER) | payer MEDICAID ==
[~2018-10-31] VITALS: Ht 157.5 cm; Wt 90.7 kg
[2018-10-31 03:10] VITALS: BP 159/85
--- NOTE | 2018-10-31 03:10 | NUR ---
ED Nurse Note: [facility]o throat discomfort that has been an ongoing issue for the past 2 weeks, states that she began feeling these symptoms after receiving antibiotics which she received due to her having knee replacement surgery at time of arrival patient presents with no fever, complains of throat pain that radiates to her ears.patient is alert and oriented x4
--- NOTE | 2018-10-31 03:11 | NUR ---
ED Nurse Note: Spoke with JAREN Collier. patient will be going back to the facility. Dr Dorantes has medically cleared the patient and states that no tests will be needed due to patient's symptoms being of viral causes.
[2018-10-31] MEDS ORDERED: FLONASE ALLERG9.9 ML NS (03:12)
--- NOTE | 2018-10-31 03:13 | Emergency Room Report ---
History of Present Illness General Source: Patient, Medical Record, EMS Present Illness HPI This is a 68-year-old female coming from [facility]. She presents with complaint of sore throat. She is currently taking doxycycline and Keflex for cellulitis from knee surgery. She been complaining of a sore throat for the last 2 weeks. Worse with swallowing. No fever or chills but does have a slight cough. Nursing staff was concerned about constricted airway and sent her into be evaluated. They worried that it may be secondary to allergic reaction from her antibiotics. She is been on these antibiotics for a week. Allergies: Coded Allergies: SULFA (SULFONAMIDE ANTIBIOTICS) (Verified Allergy, Intermediate, Rash, 10/21) abdominal pain DIVALPROEX SODIUM (Verified Allergy, Mild, 10/21/13) UNKNOWN GABAPENTIN (Verified Allergy, Unknown, 11/25/16) CARBAMAZEPINE (Verified Adverse Reaction, Severe, Shortness of Breath, 10/21) swollen lips,dizziness,skin itching. Patient History Past Medical History: see triage record, old chart reviewed Past Surgical History: other Pertinent Family History: none Now: No Immunizations: other Reviewed Nursing Documentation: PMH: Agreed; PSxH: Agreed Nursing Documentation-PMH Hx Cardiac Problems: No - Hyponatremia Hx Hypertension: Yes Hx Cancer: Yes - Left Breat Hx Gastrointestinal Problems: Yes - GERD, Gastric Ulcer Hx Neurological Problems: Yes - Trigeminal neuralgia Hx Weakness: Yes Hx Fatigue: Yes Review of Systems Eye: Denies: eye pain, blurred vision ENT: Reports: ear pain, nose congestion; Denies: throat swelling Respiratory: Reports: cough; Denies: shortness of breath Cardiovascular: Denies: chest pain, palpitations Gastrointestinal: Denies: abdominal pain, diarrhea, nausea, vomiting Musculoskeletal: Denies: back pain, joint pain Skin: Denies: rash Neurological: Denies: headache, numbness Endocrine: Denies: increased thirst, increased urine Hematologic/Lymphatic: Denies: easy bruising All Other Systems: negative except mentioned in HPI Physical Exam vitals with high blood pressure Sp02 EP Interpretation: reviewed, normal General Appearance: well appearing, no apparent distress, alert Head: normocephalic, atraumatic Eyes: bilateral eye PERRL, bilateral eye EOMI ENT: hearing grossly normal, normal pharynx, uvula midline, other - TMs with myringitis Neck: full range of motion, supple, no meningismus Respiratory: chest non-tender, lungs clear, normal breath sounds Cardiovascular #1: regular rate, rhythm, no murmur Gastrointestinal: normal bowel sounds, non tender, no mass, no organomegaly, no bruit, non-distended Musculoskeletal: back normal, gait/station normal, normal range of motion Psychiatric: mood/affect normal Medical Decision Making Diagnostic Impression: Primary Impression: Pharyngitis Qualified Codes: J02.9 - Acute pharyngitis, unspecified Additional Impression: Myringitis of both ears ER Course Patient presents with sore throat and ear pain. This is a viral etiology. She is already taking 2 antibiotics. No evidence of retropharyngeal abscess, peritonsillar abscess or Bryan angina. No evidence of allergic reaction. Will discharge home. She does have a history of high blood pressure so I will hold off on decongestion. Will prescribe nasal spray. Status: unchanged Disposition: XFER SNF Condition: Stable Scripts Fluticasone Propionate (Flonase Allergy Relief) 9.9 Ml [place].susp 9.9 ML NS BID, #1 UNIT Prov: Gavin Dorantes MD 10/31/18 Additional Instructions: Follow-up with your doctor in 7 days. Salt water gargle. May use Chloraseptic spray. Return if worse. Gavin Dorantes MD Oct 31, 2018 03:13
[2018-10-31 03:17] VITALS: BP 152/83
--- NOTE | 2018-10-31 03:17 | NUR ---
ER DISCHARGE NOTE: Patient is cleared to be discharged per ERMD, pt is aox4, on room air, with stable vital signs. pt was given dc and prescription instructions, pt was able to verbalize understanding, pt id band removed without complications. Patient is going back to [facility] accompanied by ambulance personnel
== END 2018-10-31 03:20 ==
LOC: EDBD 03:01 → EDUNIT# 03:01 → EMR 03:19
DX: J02.9 Acute pharyngitis, unspecified (principal); H73.23 Unspecified myringitis, bilateral; I10 Essential (primary) hypertension; K21.9 Gastro-esophageal reflux disease without esophagitis; Z87.11 Personal history of peptic ulcer disease; Z85.3 Personal history of malignant neoplasm of breast; Z88.2 Allergy status to sulfonamides; Z88.8 Allergy status to other drugs, medicaments and biological substances; Z91.048 Other nonmedicinal substance allergy status
CPT/HCPCS: 99283

== ENCOUNTER 2018-11-21 15:50 | Emergency (ER) | payer MEDICAID ==
[~2018-11-21] VITALS: Ht 160 cm; Wt 90.7 kg
[~2018-11-21 15:50] MED LIST changes: +FLONASE ALLERG9.9 ML NS
[2018-11-21 15:56] VITALS: BP 153/84
[2018-11-21] MEDS ORDERED: FUROSEMIDE20 M1 ORAL (16:01)
--- NOTE | 2018-11-21 16:15 | NUR ---
ED Nurse Note:pt. came with right eye redness and pain, VSS, visual acuity was done, she was seen by ER THAD
[2018-11-21] MEDS ORDERED: Tetracaine 0.5% Opth 4ml Soln RIGHT EYE ONE (16:30)
[2018-11-21] MEDS ORDERED: OCUFLOX5 ML OP (16:57)
--- NOTE | 2018-11-21 17:10 | NUR ---
ER DISCHARGE NOTE: Patient is cleared to be discharged per ERMD, pt is aox4, on room air, with stable vital signs. pt was given dc and prescription instructions, pt was able to verbalize understanding, pt is able to ambulate with cane. pt took all belongings.
[2018-11-21 17:17] VITALS: BP 153/84
--- NOTE | 2018-11-21 18:42 | Emergency Room Report ---
History of Present Illness General Chief Complaint: Eye Problems Source: Patient Present Illness HPI 68-year-old female comes right eye pain upon awakening this morning with small amount of yellow discharge. States vision is a little bit blurry. Denies eye trauma or injury. Denies fever, vomiting, headache, abdominal pain. Allergies: Coded Allergies: SULFA (SULFONAMIDE ANTIBIOTICS) (Verified Allergy, Intermediate, Rash, 10/21) abdominal pain DIVALPROEX SODIUM (Verified Allergy, Mild, 10/21/13) UNKNOWN GABAPENTIN (Verified Allergy, Unknown, 11/25/16) CARBAMAZEPINE (Verified Adverse Reaction, Severe, Shortness of Breath, 10/21) swollen lips,dizziness,skin itching. Patient History Past Medical History: HTN, other - fluid overload, left breast cancer Past Surgical History: other - right knee replacement Social History: Denies: smoking, alcohol use, drug use Nursing Documentation-[facility] Past Medical History: No History, Except For Hx Cardiac Problems: No - Hyponatremia Hx Hypertension: Yes Hx Pacemaker: No Hx Asthma: No - bronchitis, pneumonia Hx COPD: No Hx Diabetes: No Hx Cancer: Yes - Left Breat Hx Gastrointestinal Problems: Yes - GERD, Gastric Ulcer Hx Dialysis: No History Of Psychiatric Problem: No Hx Neurological Problems: Yes - Trigeminal neuralgia Hx Cerebrovascular Accident: No Hx Seizures: No Hx Weakness: Yes Hx Fatigue: Yes Review of Systems All Other Systems: negative except mentioned in HPI Physical Exam Vital Signs Date Time Temp Pulse Resp B/P (MAP) Pulse Ox O2 Delivery O2 Flow Rate FiO2 11/21/18 15:56 98.1 19 153/84 94 Room Air 11/21/18 15:56 100 Sp02 EP Interpretation: reviewed, normal General Appearance: no apparent distress, alert, GCS 15, non-toxic Eyes: right eye EOMI, right eye other - IOP 22 (done twice); left eye normal inspection - right eye: slight injection with small amount of yellow discharge. , left eye PERRL Respiratory: chest non-tender, lungs clear, normal breath sounds, speaking full sentences Cardiovascular #1: regular rate, rhythm, no edema Skin: no rash, warm/dry Medical Decision Making PA Attestation This patient was seen under the direct supervision of Dr. Snider who directed all aspects of care and diagnostic interpretation. Diagnostic Impression: Primary Impression: Ocular pain, right eye ER Course ED course HPI: 68-year-old female comes right eye pain upon awakening this morning with small amount of yellow discharge. States vision is a little bit blurry. Denies eye trauma or injury. Denies vision loss. Denies fever, vomiting, headache, abdominal pain Ddx: conjunctivitis, hyphema, allergy, keratitis, iritis, glaucoma, trauma, and others. HPI & PE consistent with: ocular pain, right eye Orders/ Interventions: Visual acuity done OD 20/200, OS 20/70, OU 20/70. IOP measured on right eye: 22. Case discussed thorougly with Dr. Snider, who also briefly examined patient. Disposition: At this time pt. is stable for d/c to home. Patient for Ocuflox given. Ophthalmology referrals given to patient. Follow-up with ophthalmology in 2 days or return to ER if worsening symptoms, new symptoms or sudden change in condition. Will provide printed patient care instructions, and any necessary prescriptions. Care plan and follow up instructions have been discussed with the patient prior to discharge. Please note that this Emergency Department Report was dictated using [employer] analyst technology software, occasionally this can lead to erroneous entry secondary to interpretation by the dictation equipment. Last Vital Signs Date Time Temp Pulse Resp B/P (MAP) Pulse Ox O2 Delivery O2 Flow Rate FiO2 11/21/18 17:17 98.1 75 19 153/84 94 Room Air Status: unchanged Disposition: HOME, SELF-CARE Condition: Stable Scripts Ofloxacin (OCUFLOX) 5 Ml Drops 1 DROP OP EVERY 6 HOURS for right eye, #5 ML Prov: Fabiola Palomino 11/21/18 Referrals: Marquise Olmedo MD, Maziar M.D. MD Patient Instructions: How to Use Eye Drops and Eye Ointments Additional Instructions: Follow-up with ophthalmology in 2 days or return to ED if worsening symptoms, new symptoms or sudden change in condition Fabiola Palomino Nov 21, 2018 18:42
== END 2018-11-21 17:20 | disposition home or self-care (01) ==
LOC: EMR 16:27
DX: H57.11 Ocular pain, right eye (principal); Z85.3 Personal history of malignant neoplasm of breast; K21.9 Gastro-esophageal reflux disease without esophagitis; Z87.11 Personal history of peptic ulcer disease; I10 Essential (primary) hypertension; G50.0 Trigeminal neuralgia; Z96.651 Presence of right artificial knee joint; Z88.2 Allergy status to sulfonamides; Z88.8 Allergy status to other drugs, medicaments and biological substances
CPT/HCPCS: 99282